=== PATIENT | female | born 1930 | race Caucasian/White ===

== ENCOUNTER 2017-10-05 14:45 | Emergency (ER) | payer OTHER ==
[~2017-10-05] VITALS: Ht 162.6 cm; Wt 106.3 kg
[~2017-10-05 14:45] MED LIST: ACET-1311 PO; ALUMSUS2 PO; ATV5 PO; CALCTAB5 PO; CITRACEL PO; CLC100 PO; CTP1 PO; DIGO0.122 PO; DLCS PR; FENT12DI3 TD; HYZ/10015 PO; MAGN400T6 PO; METO-478 PO; MULT-506 PO; POTA20TA16 PO; PRLSR20 PO; SYN25 PO; WARF1TAB PO
[2017-10-05 14:54] VITALS: TEMP 36.8; Ht 162.6 cm; Wt 106.3 kg
[2017-10-05] MEDS ORDERED: SODIUM CHLORIDE 0.9% 500ML 500 ML IV STA (15:10)
[2017-10-05] MEDS ORDERED: DiphenhydrAMINE HCL 50 MG/ML VIAL IV STA (15:10)
[2017-10-05] MEDS ORDERED: METOCLOPRAMIDE HCL INJ 5 MG/ML 2 ML VIAL IV STA (15:10)
--- NOTE | 2017-10-05 15:33 | DIAGNOSTIC IMAGING REPORT ---
CHEST ONE VIEW PORTABLE CLINICAL HISTORY: 87 years-old Female presenting with CHEST PAIN. TECHNIQUE: Portable upright AP view of the chest was obtained. COMPARISON: 07/20/2010. FINDINGS: Left subclavian pacer with leads to the right atrium and right ventricular apex. Atherosclerosis of aortic arch and mild tortuosity of the descending thoracic aorta. Cardiac silhouette enlarged, increased from prior. Prominence of pulmonary vasculature. Prominent lung markings. No focal infiltrate. No large effusion or pneumothorax. Degenerative changes of the spine and shoulders. Upper abdomen normal. IMPRESSION: 1. Cardiomegaly with findings concerning for volume overload. No jessica pulmonary edema. Electronically signed by: Jamie Villarreal M.D. 10/05/2017 3:31 PM Dictated Date/Time: 10/05/2017 3:30 PM
--- NOTE | 2017-10-05 15:39 | EMERGENCY ROOM VISIT NOTE ---
History Report prepared by Harinder: Angeli Rushing Under the Supervision of: Dr. José Antonio Amezcua M.D. First contact with patient: 15:07 Chief Complaint: HEADACHE Stated Complaint: HEADACHE/PAIN History of Present Illness The patient is an 87 year old female who presents to the Emergency Room with complaints of intermittent headaches starting last week. The patient had 3 headaches last week. These headaches resolved with Excedrin. She normally does not have headaches. 2.5 hours ago she started having another headache. The pain started at a 2-3 and increased quickly to a 5/10. The headache is on the right side of her head around her hindu and into her eye area. Excedrin did not improve her headache today. She found that her blood pressure was around 185/ 125 after the headache started so the patient went to her doctor today and was sent to the ED. The patient reports feeling dizzy. She denies any weakness, vision changes, cough, congestion, cold symptoms, urinary symptoms, neck pain, vomiting, or nausea. She has some soft stools at times and notes that she does take a stool softener. She has been eating and drinking well. She tripped and fell last week while she had a headache. She also fell today during her headache. She hit her elbow. She denies any other injury. She has a history of spinal stenosis and is on a fentanyl patch. She is on Coumadin and digoxin. She has a history of atrial fibrillation, hypertension, and kidney disease. She denies any history of heart failure. Source of History: patient Onset: last week Position: head Symptom Intensity: 5/10 Quality: ache Timing: intermittent Associated Symptoms: No cough, No neck pain, No nausea, No vomiting, No urinary symptoms, No weakness Note: Pt reports dizziness, high blood pressure. Pt denies vision changes, congestion , cold symptoms. Review of Systems See HPI for pertinent positives and negatives. A total of ten systems were reviewed and were otherwise negative. Past Medical & Surgical Medical Problems: (1) Atrial fibrillation (2) Hypertension (3) Kidney disease (4) Spinal stenosis Family History Noncontributory secondary to age. Social History Smoking Status: Former Smoker Marital Status: Occupation Status: retired Current/Historical Medications Scheduled Cholecalciferol (Vitamin D), 1,000 UNITS PO DAILY Clonidine Hcl (Catapres), 0.1 MG PO DAILY Digoxin (Digoxin), 0.125 MG PO Q2D Docusate Sodium (Docusate Sodium), 100 MG PO BID Duloxetine Hcl (Cymbalta), 30 MG PO DAILY Fentanyl (Fentanyl), 25 MCG TD Q72H Hctz/Losartan (Hyzaar 25MG/100MG), 1 TAB PO DAILY Levothyroxine Sodium (Synthroid), 50 MCG PO DAILY Magnesium Oxide (Mag-Ox), 400 MG PO DAILY Metoprolol Tartrate (Metoprolol Tartrate), 100 MG PO BID Nystatin/Triamcinolone (Mycolog ||), 1 APPLN TD BID Psyllium (Metamucil Original Textur), 1.5 TBS PO QAM Ropinirole (Requip), 0.5 MG PO HS Warfarin Sodium (Warfarin Sodium), 4 MG PO 2XWK Warfarin Sodium (Coumadin), 3 MG PO 5XWK Scheduled PRN Acetaminophen W/ Codeine (Tylenol/Codeine #4), 1 TAB PO Q6H PRN for Pain Albuterol Sulfate (Proair Respiclick), 2 PUFFS INH QID PRN for SOB/Wheezing Artificial Tear Solution (Tears Naturale), Unknown Dose OPB DIRECTED PRN for DRYNESS Lorazepam (Ativan), 0.5 MG PO TID PRN for Anxiety/Agitation Naloxone HCl (Narcan), 1 SPRAY NA DIRECTED PRN for SUSPECTED OPOID OVERDOSE Ondansetron Hcl (Zofran), 8 MG PO TID PRN for Nausea Polyethylene Glycol 3350 (Miralax), 17 GM PO DAILY PRN for Constipation Allergies Coded Allergies: Pravastatin (Verified Allergy, Intermediate, "MUSCLE PAIN", 10/05/17) Clonidine (Verified Allergy, Mild, TOPICAL RASH TO PATCH ONLY, 10/05/17) PT REPORTS A REACTION TO THE PATCH ONLY. PT TAKES THE PILL WITHOUT DIFFICULTY Physical Exam Vital Signs Date Time Temp Pulse Resp B/P (MAP) Pulse Ox O2 Delivery O2 Flow Rate FiO2 10/05/17 21:40 89 18 151/89 95 10/05/17 21:15 100 10/05/17 20:20 95 Room Air 10/05/17 19:27 90 10/05/17 19:19 106 22 164/92 96 Room Air 10/05/17 17:56 165/80 NIBP 10/05/17 17:48 108 16 175/155 98 Room Air 10/05/17 16:51 110 16 187/163 93 Room Air 10/05/17 16:22 116 24 193/151 96 Room Air 10/05/17 16:21 96 Room Air 10/05/17 15:08 82 10/05/17 14:54 36.8 91 16 188/135 98 Room Air Physical Exam GENERAL: Awake, alert, relatively well-appearing, in no distress HENT: Normocephalic, atraumatic. No temporal tenderness to palpation. Dry mucous membranes. EYES: Normal conjunctiva. Sclera non-icteric. NECK: Supple. No nuchal rigidity. FROM. No JVD. RESPIRATORY: Clear to auscultation. CARDIAC: Irregularly irregular rhythm. Extremities warm and well perfused. Pulses equal. ABDOMEN: Soft, non-distended. No tenderness to palpation. No rebound or guarding. No masses. RECTAL: Deferred. MUSCULOSKELETAL: Chest examination reveals no tenderness. The back is symmetrical on inspection without obvious abnormality. There is no CVA tenderness to palpation. No joint edema. LOWER EXTREMITIES: Calves are equal size bilaterally and non-tender. No edema. No discoloration. NEURO: Normal sensorium. No sensory or motor deficits noted. SKIN: No rash or jaundice noted. Medical Decision & Procedures ER Provider Diagnostic Interpretation: Radiology results as stated below per my review and radiologist interpretation: CHEST ONE VIEW PORTABLE CLINICAL HISTORY: 87 years-old Female presenting with CHEST PAIN. TECHNIQUE: Portable upright AP view of the chest was obtained. COMPARISON: 07/20/2010. FINDINGS: Left subclavian pacer with leads to the right atrium and right ventricular apex. Atherosclerosis of aortic arch and mild tortuosity of the descending thoracic aorta. Cardiac silhouette enlarged, increased from prior. Prominence of pulmonary vasculature. Prominent lung markings. No focal infiltrate. No large effusion or pneumothorax. Degenerative changes of the spine and shoulders. Upper abdomen normal. IMPRESSION: 1. Cardiomegaly with findings concerning for volume overload. No jessica pulmonary edema. Electronically signed by: Jamie Villarreal M.D. 10/05/2017 3:31 PM Dictated Date/Time: 10/05/2017 3:30 PM HEAD WITHOUT CONTRAST (CT) CLINICAL HISTORY: 87 years-old Female presenting with Headache, on coumadin. TECHNIQUE: Multidetector CT imaging of the head was performed without the use of intravenous contrast. IV contrast: None. A dose lowering technique was used consistent with the principles of ALARA (as low as reasonably achievable). COMPARISON: None. CT DOSE (mGy.cm): The estimated cumulative dose is 601.98 mGy.cm. FINDINGS: Software Q[employer] System Specialist topogram: Unremarkable. Proportional ventricular and sulcal prominence, likely age-related parenchymal volume loss. Periventricular and subcortical white matter hypoattenuation, nonspecific but likely indicative of chronic small vessel ischemic change. No mass effect or midline shift. No hemorrhage or acute territorial infarct. No extra-axial fluid collection. Extensive opacification with a crenulated margin and hyperdensity in the left maxillary sinus. [place] lenses are absent. IMPRESSION: 1. Chronic small vessel ischemic change. No acute intracranial abnormality. 2. Findings could suggest chronic allergic sinusitis in the left maxillary sinus. Electronically signed by: Jamie Villarreal M.D. 10/05/2017 4:57 PM Dictated Date/Time: 10/05/2017 4:54 PM Laboratory Results 10/05/17 04:52 Red Blood Count 3.53, Mean Corpuscular Volume 96.3, Mean Corpuscular Hemoglobin 31.7, Mean Corpuscular Hemoglobin Concent 32.9, Mean Platelet Volume 10.3, Neutrophils (%) (Auto) 85.8, Lymphocytes (%) (Auto) 7.8, Monocytes (%) (Auto) 5.2, Eosinophils (%) (Auto) 0.7, Basophils (%) (Auto) 0.1, Neutrophils # (Auto) 9.16, Lymphocytes # (Auto) 0.83, Monocytes # (Auto) 0.56, Eosinophils # (Auto) 0.08, Basophils # (Auto) 0.01 10/05/17 16:13 Test 10/05/17 04:52 10/05/17 16:13 10/05/17 16:20 10/05/17 17:12 White Blood Count 10.68 K/uL (4.8-10.8) Red Blood Count 3.53 M/uL (4.2-5.4) Hemoglobin 11.2 g/dL (12.0-16.0) Hematocrit 34.0 % (37-47) Mean Corpuscular Volume 96.3 fL (80-100) Mean Corpuscular Hemoglobin 31.7 pg (25-34) Mean Corpuscular Hemoglobin Concent 32.9 g/dl (32-36) Platelet Count 269 K/uL (130-400) Mean Platelet Volume 10.3 fL (7.4-10.4) Neutrophils (%) (Auto) 85.8 % Lymphocytes (%) (Auto) 7.8 % Monocytes (%) (Auto) 5.2 % Eosinophils (%) (Auto) 0.7 % Basophils (%) (Auto) 0.1 % Neutrophils # (Auto) 9.16 K/uL (1.4-6.5) Lymphocytes # (Auto) 0.83 K/uL (1.2-3.4) Monocytes # (Auto) 0.56 K/uL (0.11-0.59) Eosinophils # (Auto) 0.08 K/uL (0-0.5) Basophils # (Auto) 0.01 K/uL (0-0.2) RDW Standard Deviation 52.0 fL (36.4-46.3) RDW Coefficient of Variation 14.9 % (11.5-14.5) Immature Granulocyte % (Auto) 0.4 % Immature Granulocyte # (Auto) 0.04 K/uL (0.00-0.02) Anion Gap 9.0 mmol/L (3-11) Est Creatinine Clear Calc Drug Dose 42.1 ml/min Estimated GFR () 51.2 Estimated GFR (Non- 44.1 BUN/Creatinine Ratio 20.8 (10-20) Calcium Level 8.8 mg/dl (8.5-10.1) Total Bilirubin 0.5 mg/dl (0.2-1) Direct Bilirubin mg/dl (0-0.2) Aspartate Amino Transf (AST/SGOT) 69 U/L (15-37) Alanine Aminotransferase (ALT/SGPT) 59 U/L (12-78) Alkaline Phosphatase 67 U/L (45-117) Troponin I 0.018 ng/ml (0-0.045) Total Protein 7.6 gm/dl (6.4-8.2) Albumin 3.7 gm/dl (3.4-5.0) Lipase 59 U/L (73-393) Chemistry Specimen Hemolysis Digoxin Level 0.3 ng/ml (0.8-2.0) Pro-B-Type Natriuretic Peptide 23621 pg/ml (0-1800) Prothrombin Time 21.1 SECONDS (9.0-12.0) Prothromb Time International Ratio 2.0 (0.9-1.1) Activated Partial Thromboplast Time 30.5 SECONDS (21.0-31.0) Partial Thromboplastin Ratio 1.2 Test 10/05/17 18:34 Urine Color YELLOW Urine Appearance CLOUDY (CLEAR) Urine pH 6.5 (4.5-7.5) Urine Specific [place] 1.018 (1.000-1.030) Urine Protein 2+ (NEG) Urine Glucose (UA) NEG (NEG) Urine Ketones NEG (NEG) Urine Occult Blood NEG (NEG) Urine Nitrite NEG (NEG) Urine Bilirubin NEG (NEG) Urine Urobilinogen NEG (NEG) Urine Leukocyte Esterase TRACE (NEG) Urine WBC (Auto) 1-5 /hpf (0-5) Urine RBC (Auto) 0-4 /hpf (0-4) Urine Hyaline Casts (Auto) 1-5 /lpf (0-5) Urine Epithelial Cells (Auto) >30 /lpf (0-5) Urine Bacteria (Auto) 4+ (NEG) Laboratory results reviewed by me Medications Administered Medications (Trade) Dose Ordered Sig/Lindsey Route Start Time Stop Time Status Last Admin Dose Admin Sodium Chloride 500 ml @ 999 mls/hr Q31M STAT IV 10/05/17 15:10 10/05/17 15:40 DC 10/05/17 16:18 999 MLS/HR Metoclopramide HCl (Reglan Inj) 10 mg NOW STAT IV 10/05/17 15:10 10/05/17 15:19 DC 10/05/17 16:18 10 MG Diphenhydramine HCl (Benadryl Inj) 25 mg NOW STAT IV 10/05/17 15:10 10/05/17 15:19 DC 10/05/17 16:18 25 MG Lorazepam (Ativan Inj) 0.5 mg NOW STAT IV 10/05/17 16:27 10/05/17 16:29 DC 10/05/17 16:51 0.5 MG Fentanyl (Duragesic Patch) 25 mcg NOW STAT TD 10/05/17 16:44 10/05/17 16:45 DC 10/05/17 16:58 25 MCG Metoprolol Tartrate (Lopressor Tab) 100 mg NOW STAT PO 10/05/17 18:10 10/05/17 18:14 DC 10/05/17 18:30 100 MG Acetaminophen/ Codeine Phosphate (Tylenol w/ Codeine #4 Tab) 1 tab NOW STAT PO 10/05/17 19:16 10/05/17 19:18 DC 10/05/17 19:29 1 TAB Dexamethasone Sodium Phosphate (Dexamethasone Inj Pf) 10 mg NOW ONCE IV 10/05/17 19:30 10/05/17 19:31 DC 10/05/17 19:29 10 MG ECG Indication: other Rate (beats per minute): 104 Rhythm: atrial fibrillation Findings: no acute ischemic change, other (normal axis) Comparison ECG Date: 21-Jul-2011 Change: no significant change ED Course 1508: The patient was evaluated in room B5. A complete history and physical exam was performed. 1802: I reevaluated the patient. 2018: I reevaluated the patient. 2040: I discussed the patient's case with Dr. Morgan, [facility] cardiology. He is in agreement with the plan. 2114: I reevaluated the patient. Discussed results and discharge instructions: She verbalized understanding and agreement. The patient is ready for discharge. Medical Decision I reviewed the patient's past medical history, medications, and the nursing notes as described above. Differential diagnosis: ICH, tension, headache, dehydration, electrolyte abnormality, pneumonia, UTI. The patient is an 87-year-old woman with a past medical history of A. fib on Coumadin as well as hypertension on digoxin presents to the Emergency Department with intermittent headaches for the past week in the setting of elevated blood pressures sent from her PCPs office per hpi. On arrival the patient is well-appearing, no acute distress, systolic blood pressure to 180s but otherwise stable. Neurologically intact including normal cerebellar function with [id number], alternating palms, [id number]. CT head negative for acute findings. She and feeling somewhat improved after 500 mL IV fluid bolus, Reglan and Benadryl. However given persistent mild headache treated with dexamethasone and her home Tylenol 4 with further improvement and resolution of CAICEDO. Patient counseled on need for close INR observation given dose of steroid in the setting of her Coumadin. Labs are unremarkable however chest showing volume overload with venous congestion and so BNP was ordered to further characterize and was in the 10,000' s. Patient's oxygenation has been normal while in ED with sats >93%. Additionally assessed with a ambulatory pulse ox and was > 95% on RA. Of note the patient has not been using her home CPAP for the past 2 weeks since her machine broke and when the new one was delivered she did not know how to use it. Thus, patient's elevated BNP is possibly related to this in the setting of her A. fib and likely underlying pulmonary hypertension. Bedside echo demonstrated mildly dilated RV with grossly normal function. Given the lack of respiratory symptoms and saturating normally no indication for admission at this time. Case was discussed with Dilai Young manager behavior on-call , who agreed that given the patient's lack of respiratory symptoms no need for admission at this time and outpatient follow-up is appropriate. Case management assisting to help arrange outpatient allergy follow-up for formal echo. Family was also able to contact the [employer] and a tech will be meeting them at home to help ensure the patient is able to use her CPAP going forward. Findings and plan for follow-up reviewed with patient. Patient agreeable and d/c'd per discharge instructions. Medication Reconcilliation Current Medication List: was personally reviewed by me Blood Pressure Screening Patient's blood pressure: Elevated blood pressure Blood pressure disposition: Referred to PCP Consults Time Called: 2037 Consulting Physician: Dilia Young cardiology Returned Call: 2040 I discussed the patient's case with him. He is in agreement with the plan. Impression Primary Impression: Headache Additional Impressions: Hypertension Congestive heart failure of unknown etiology Scribe Attestation The scribe's documentation has been prepared under my direction and personally reviewed by me in its entirety. I confirm that the note above accurately reflects all work, treatment, procedures, and medical decision making performed by me. Departure Information Dispostion Home / Self-Care Referrals Willi Mccoy, VaughnO. (PCP) Patient Instructions Congestive Heart Failure -[facility], Headache Pain, Hypertension Dc, My [facility] Additional Instructions Please follow up with your primary care physician as well as with your manager behavior, Dr. Fenton, for re-evaluation within the next week. You were given a dose of a steroid, which can affect your Coumadin levels so this should be check with your doctor. Your headache is most likely due to not using your home CPAP for the past 2 weeks. Your chest xray showed some vascular congestion and your BNP was elevated to 10 thousand, which should be promptly be evaluated by your manager behavior with a formal ultrasound of your heart. Otherwise, your exam, EKG, chest xray, CT scan of your head, and lab results did not show signs of an emergent condition at this time. Return to the emergency department for worsening symptoms as described in the accompanying instructions. Problem Qualifiers
[2017-10-05] MEDS ORDERED: WARF4TAB43 PO (16:18)
[2017-10-05] MEDS ORDERED: DRGTP25 TD (16:18)
[2017-10-05] MEDS ORDERED: ONDA8TAB6 PO (16:18)
[2017-10-05] MEDS ORDERED: WARF2TAB PO (16:18)
[2017-10-05] MEDS ORDERED: ARTISOL OPB (16:18)
[2017-10-05] MEDS ORDERED: LORA-741 PO (16:18)
[2017-10-05] MEDS ORDERED: TYLENOL #4 PO (16:18)
[2017-10-05] MEDS ORDERED: NALO1SPR (16:18)
[2017-10-05] MEDS ORDERED: CTP/1 PO (16:18)
[2017-10-05] MEDS ORDERED: ALBU18002 INH (16:18)
[2017-10-05] MEDS ORDERED: CYM/30 PO (16:18)
[2017-10-05] MEDS ORDERED: LNX125 PO (16:18)
[2017-10-05] MEDS ORDERED: LEVO50TA PO (16:18)
[2017-10-05] MEDS ORDERED: LPR100 PO (16:18)
[2017-10-05] MEDS ORDERED: ROPI0.5T15 PO (16:18)
[2017-10-05] MEDS ORDERED: DOCU100C31 PO (16:18)
[2017-10-05] MEDS ORDERED: PSYL48.58 PO (16:18)
[2017-10-05] MEDS ORDERED: POLY335019 PO (16:18)
[2017-10-05] MEDS ORDERED: NYSTCRE11 TD (16:18)
[2017-10-05] MEDS ORDERED: CHOL100010 PO (16:18)
[2017-10-05 16:21] VITALS: O2SAT 96
[2017-10-05] MEDS ORDERED: ACET-1079 PO (16:23)
[2017-10-05 16:24] LABS: BASO % 0.1 %; BASO ABS # 0.01 K/uL (0-0.2); COMPLETE YES; EOS % 0.7 %; IG% 0.4 %; LYMPH % 7.8 %; LYMPH ABS # 0.83 K/uL (1.2-3.4); MEAN CELL VOLUME 96.3 fL (80-100); MEAN CORPUSCULAR HEMOGLOBIN 31.7 pg (25-34); MEAN CORPUSCULAR HGB CONC 32.9 g/dl (32-36); MEAN PLATELET VOLUME 10.3 fL (7.4-10.4); MONO % 5.2 %; NEUT % 85.8 %; PLATELET COUNT 269 K/uL (130-400); RED BLOOD COUNT 3.53 M/uL (4.2-5.4); WHITE BLOOD COUNT 10.68 K/uL (4.8-10.8)
[2017-10-05] MEDS ORDERED: LORAZEPAM 2 MG/ML 1 ML VIAL IV STA (16:27)
[2017-10-05] MEDS ORDERED: FENTANYL 50 MCG/HR TDSY TD STA (16:30)
[2017-10-05] MEDS ORDERED: FENTANYL 25 MCG/HR TDSY TD STA (16:44)
[2017-10-05 16:55] LABS: BUN/CREATININE RATIO 20.8 (10-20); CALCIUM 8.8 mg/dl (8.5-10.1); CREATININE 1.12 mg/dl (0.60-1.20); POTASSIUM 4.2 mmol/L (3.5-5.1)
--- NOTE | 2017-10-05 16:59 | DIAGNOSTIC IMAGING REPORT ---
HEAD WITHOUT CONTRAST (CT) CLINICAL HISTORY: 87 years-old Female presenting with Headache, on coumadin. TECHNIQUE: Multidetector CT imaging of the head was performed without the use of intravenous contrast. IV contrast: None. A dose lowering technique was used consistent with the principles of ALARA (as low as reasonably achievable). COMPARISON: None. CT DOSE (mGy.cm): The estimated cumulative dose is 601.98 mGy.cm. FINDINGS: [place] topogram: Unremarkable. Proportional ventricular and sulcal prominence, likely age-related parenchymal volume loss. Periventricular and subcortical white matter hypoattenuation, nonspecific but likely indicative of chronic small vessel ischemic change. No mass effect or midline shift. No hemorrhage or acute territorial infarct. No extra-axial fluid collection. Extensive opacification with a crenulated margin and hyperdensity in the left maxillary sinus. [place] lenses are absent. IMPRESSION: 1. Chronic small vessel ischemic change. No acute intracranial abnormality. 2. Findings could suggest chronic allergic sinusitis in the left maxillary sinus. Electronically signed by: Jamie Villarreal M.D. 10/05/2017 4:57 PM Dictated Date/Time: 10/05/2017 4:54 PM
[2017-10-05 17:30] LABS: PARTIAL THROMBOPLASTIN RATIO 1.2; PROTHROMBIN TIME (PATIENT) 21.1 SECONDS (9.0-12.0)
[2017-10-05] MEDS ORDERED: METOPROLOL TARTRATE 50 MG TAB PO STA (18:10)
[2017-10-05 18:55] LABS: URINE APPEARANCE CLOUDY (CLEAR); URINE BILIRUBIN NEG (NEG); URINE COLOR YELLOW; URINE EPITHELIAL CELL AUTO >30 /lpf (0-5); URINE NITRITE NEG (NEG); URINE PH 6.5 (4.5-7.5); URINE SPECIFIC GRAVITY 1.018 (1.000-1.030); UROBILINOGEN NEG (NEG); ZZUR CULT IF INDIC CLEAN CATCH YES
[2017-10-05 19:01] LABS: MANUAL MICROSCOPIC REQUIRED? NO; REVIEW REQ? NO
[2017-10-05] MEDS ORDERED: ACETAMINOPHEN PO STA (19:16)
[2017-10-05] MEDS ORDERED: CODEINE PO STA (19:16)
[2017-10-05] MEDS ORDERED: DEXAMETHASONE **PF** INJ 10 MG/ML VIAL IV ONE (19:30)
[2017-10-05 21:40] VITALS: BP 151/89; PULSE 89; O2SAT 95
[2017-10-08] MEDS ORDERED: NRV5 PO (09:48)
[2017-10-08] MEDS ORDERED: ASPI81TA28 PO (09:48)
== END 2017-10-05 21:40 | disposition home or self-care (01) ==
LOC: EDBD 14:45 → C.EDB 14:46
DX: R51 Headache (principal); I10 Essential (primary) hypertension; I50.9 Heart failure, unspecified; I48.91 Unspecified atrial fibrillation; Z87.891 Personal history of nicotine dependence; Z79.01 Long term (current) use of anticoagulants; Z51.81 Encounter for therapeutic drug level monitoring

== ENCOUNTER 2017-10-06 15:27 | Inpatient (IN) | payer OTHER ==
[~2017-10-06] VITALS: Ht 167.6 cm; Wt 98.4 kg
[~2017-10-06 15:27] MED LIST changes: +ACET-1079 PO; -ACET-1311 PO; +ALBU18002 INH; -ALUMSUS2 PO; +ARTISOL OPB; -ATV5 PO; -CALCTAB5 PO; +CHOL100010 PO; -CITRACEL PO; -CLC100 PO; +CTP/1 PO; -CTP1 PO; +CYM/30 PO; -DIGO0.122 PO; -DLCS PR; +DOCU100C31 PO; +DRGTP25 TD; -FENT12DI3 TD; +LEVO50TA PO; +LNX125 PO; +LORA-741 PO; +LPR100 PO; -METO-478 PO; -MULT-506 PO; +NALO1SPR; +NYSTCRE11 TD; +ONDA8TAB6 PO; +POLY335019 PO; -POTA20TA16 PO; -PRLSR20 PO; +PSYL48.58 PO; +ROPI0.5T15 PO; -SYN25 PO; -WARF1TAB PO; +WARF2TAB PO; +WARF4TAB43 PO
--- NOTE | 2017-10-06 15:40 | DIAGNOSTIC IMAGING REPORT ---
HEAD CT NONCONTRAST CT DOSE: 1359.50 mGycm HISTORY: Stroke symptoms. TECHNIQUE: Multiaxial CT images of the head were performed without the use of intravenous contrast. Automated exposure control was utilized for this study. A dose lowering technique was utilized adhering to the principles of ALARA. Comparison: Head CT 10/05/2017. Findings: Partial opacification of the left maxillary sinus with central hyperdense foci suggestive of inspissated secretions. This remains unchanged. The calvarium and skull base are intact. There is no mass, hematoma, midline shift, acute infarct. White matter hypodensity is nonspecific but suggestive of microvascular ischemic change. The ventricles and sulci demonstrate mild age-related involutional changes. Impression: No significant change compared to the prior study. No acute intracranial abnormality. Electronically signed by: Lorne Arellano M.D. 10/06/2017 3:38 PM Dictated Date/Time: 10/06/2017 3:35 PM
[2017-10-06 16:01] LABS: BASO % 0.2 %; BASO ABS # 0.02 K/uL (0-0.2); EOS % 0.3 %; EOS ABS # 0.03 K/uL (0-0.5); HEMATOCRIT 33.1 % (37-47); HEMOGLOBIN 10.8 g/dL (12.0-16.0); IG# 0.03 K/uL (0.00-0.02); LYMPH % 12.1 %; LYMPH ABS # 1.25 K/uL (1.2-3.4); MEAN CELL VOLUME 97.4 fL (80-100); MEAN CORPUSCULAR HEMOGLOBIN 31.8 pg (25-34); MEAN CORPUSCULAR HGB CONC 32.6 g/dl (32-36); MEAN PLATELET VOLUME 10.2 fL (7.4-10.4); MONO % 7.7 %; NEUT % 79.4 %; PLATELET COUNT 281 K/uL (130-400); RED CELL DISTRIBUTION WIDTH CV 15.3 % (11.5-14.5); RED CELL DISTRIBUTION WIDTH SD 53.7 fL (36.4-46.3); WHITE BLOOD COUNT 10.33 K/uL (4.8-10.8)
[2017-10-06 16:10] LABS: INR 1.8 (0.9-1.1); PTT PATIENT 27.7 SECONDS (21.0-31.0)
--- NOTE | 2017-10-06 16:10 | DIAGNOSTIC IMAGING REPORT ---
CHEST ONE VIEW PORTABLE CLINICAL HISTORY: Stroke COMPARISON STUDY: 10/05/2017 FINDINGS: The heart is enlarged. There is a left subclavian dual-chamber central venous pacemaker present. There is resolving mild pulmonary vascular congestion. There is no focal pulmonary consolidation. There are no pleural effusions.[ IMPRESSION: Cardiomegaly with resolving pulmonary vascular congestion. No evidence of focal pulmonary consolidation Electronically signed by: Saul Washington M.D. 10/06/2017 4:09 PM Dictated Date/Time: 10/06/2017 4:08 PM
--- NOTE | 2017-10-06 16:15 | EMERGENCY ROOM VISIT NOTE ---
History Report prepared by Harinder: Edy Donaldson Under the Supervision of: Dr. William Torres M.D. First contact with patient: 15:26 Stated Complaint: STROKE SX History of Present Illness The patient is a 87 year old female who presents to the Emergency Room by EMS with complaints of resolved neurologic symptoms beginning 1.5 hours ago. The patient's symptoms include right arm numbness, and slurred speech. She feels that her right leg may have been slightly weak as well. Her symptoms resolved en route and were present for about an hour total. The patient denies headaches. She is on Coumadin for A-fib. The patient was seen in the ED yesterday for high blood pressure and a headache, and received a head CT which showed possible sinusitis. She was ultimately discharged home. Her initial blood pressure was 188/135, but lowered to 151/89 at the time of discharge. The patient states that she felt normal following discharge. Source of History: patient Onset: 1.5 hours ago Symptom Intensity: 1 hour long Quality: other (neurologic symptoms) Timing: resolved Associated Symptoms: + numbness (right arm), No headache Note: Additional symptoms: resolved speech slur. Review of Systems See HPI for pertinent positives & negatives. A total of 10 systems reviewed and were otherwise negative. Past Medical & Surgical Medical Problems: (1) Atrial fibrillation (2) HTN (hypertension) (3) Hypertension (4) Kidney disease (5) Spinal stenosis (6) TIA (transient ischemic attack) Family History No pertinent family history stated. Social History Smoking Status: Former Smoker Marital Status: Occupation Status: retired Current/Historical Medications Scheduled Cholecalciferol (Vitamin D), 1,000 UNITS PO DAILY Clonidine Hcl (Catapres), 0.1 MG PO DAILY Digoxin (Digoxin), 0.125 MG PO Q2D Docusate Sodium (Docusate Sodium), 100 MG PO BID Duloxetine Hcl (Cymbalta), 30 MG PO DAILY Fentanyl (Fentanyl), 25 MCG TD Q72H Hctz/Losartan (Hyzaar 25MG/100MG), 1 TAB PO DAILY Levothyroxine Sodium (Synthroid), 50 MCG PO DAILY Magnesium Oxide (Mag-Ox), 400 MG PO DAILY Metoprolol Tartrate (Metoprolol Tartrate), 100 MG PO BID Nystatin/Triamcinolone (Mycolog ||), 1 APPLN TD BID Psyllium (Metamucil Original Textur), 1.5 TBS PO QAM Ropinirole (Requip), 0.5 MG PO HS Warfarin Sodium (Warfarin Sodium), 4 MG PO 2XWK Warfarin Sodium (Coumadin), 3 MG PO 5XWK Scheduled PRN Acetaminophen W/ Codeine (Tylenol/Codeine #4), 1 TAB PO Q6H PRN for Pain Albuterol Sulfate (Proair Respiclick), 2 PUFFS INH QID PRN for SOB/Wheezing Artificial Tear Solution (Tears Naturale), Unknown Dose OPB DIRECTED PRN for DRYNESS Lorazepam (Ativan), 0.5 MG PO TID PRN for Anxiety/Agitation Naloxone HCl (Narcan), 1 SPRAY NA DIRECTED PRN for SUSPECTED OPOID OVERDOSE Ondansetron Hcl (Zofran), 8 MG PO TID PRN for Nausea Polyethylene Glycol 3350 (Miralax), 17 GM PO DAILY PRN for Constipation Allergies Coded Allergies: Clonidine (Verified Allergy, Mild, TOPICAL RASH TO PATCH ONLY, 10/06/17) PT REPORTS A REACTION TO THE PATCH ONLY. PT TAKES THE PILL WITHOUT DIFFICULTY Pravastatin (Verified Adverse Reaction, Intermediate, "MUSCLE PAIN", 10/06) Physical Exam Vital Signs Date Time Temp Pulse Resp B/P (MAP) Pulse Ox O2 Delivery O2 Flow Rate FiO2 10/06/17 16:51 81 22 162/139 98 Room Air 10/06/17 16:27 66 24 97 10/06/17 16:06 71 10/06/17 16:02 154/104 10/06/17 15:58 64 20 152/112 93 Nasal Cannula 2.0 10/06/17 15:57 66 25 100 10/06/17 15:53 93 Room Air 10/06/17 15:51 152/112 10/06/17 15:45 189/84 10/06/17 15:38 36.6 72 20 189/84 94 Room Air Physical Exam GENERAL: Patient is in no acute distress. HEENT: No acute trauma, normocephalic atraumatic, mucous membranes moist, no nasal congestion, no scleral icterus. NECK: No stridor, no adenopathy, no meningismus, trachea is midline. LUNGS: Clear to auscultation bilaterally, no wheeze, no rhonchi, breath sounds equal. HEART: Irregular with a normal rate. No murmurs. ABDOMEN: Soft, nontender, bowel sounds positive, no hernias, no peritonitis. EXTREMITIES: No cyanosis or edema, full range of motion of all the joints without pain or difficulty, no signs for acute trauma. NEUROLOGIC: Oriented x 3, no acute motor or sensory deficits, no focal weakness. No speech slur or facial droop. No pronator drift or cerebellar dysfunction. SKIN: No rash, no jaundice, no diaphoresis. Medical Decision & Procedures ER Provider Diagnostic Interpretation: Radiology results as stated below per my review and radiologist interpretation: HEAD CT NONCONTRAST Findings: Partial opacification of the left maxillary sinus with central hyperdense foci suggestive of inspissated secretions. This remains unchanged. The calvarium and skull base are intact. There is no mass, hematoma, midline shift, acute infarct. White matter hypodensity is nonspecific but suggestive of microvascular ischemic change. The ventricles and sulci demonstrate mild age-related involutional changes. Impression: No significant change compared to the prior study. No acute intracranial abnormality. Electronically signed by: Lorne Arellano M.D. 10/06/2017 3:38 PM CHEST ONE VIEW PORTABLE FINDINGS: The heart is enlarged. There is a left subclavian dual-chamber central venous pacemaker present. There is resolving mild pulmonary vascular congestion. There is no focal pulmonary consolidation. There are no pleural effusions.[ IMPRESSION: Cardiomegaly with resolving pulmonary vascular congestion. No evidence of focal pulmonary consolidation Electronically signed by: Saul Washington M.D. 10/06/2017 4:09 PM Laboratory Results 10/06/17 15:40 Red Blood Count 3.40, Mean Corpuscular Volume 97.4, Mean Corpuscular Hemoglobin 31.8, Mean Corpuscular Hemoglobin Concent 32.6, Mean Platelet Volume 10.2, Neutrophils (%) (Auto) 79.4, Lymphocytes (%) (Auto) 12.1, Monocytes (%) (Auto) 7.7, Eosinophils (%) (Auto) 0.3, Basophils (%) (Auto) 0.2, Neutrophils # (Auto) 8.20, Lymphocytes # (Auto) 1.25, Monocytes # (Auto) 0.80, Eosinophils # (Auto) 0.03, Basophils # (Auto) 0.02 10/06/17 15:40 Test 10/06/17 15:26 10/06/17 15:40 10/06/17 15:49 White Blood Count 10.33 K/uL (4.8-10.8) Red Blood Count 3.40 M/uL (4.2-5.4) Hemoglobin 10.8 g/dL (12.0-16.0) Hematocrit 33.1 % (37-47) Mean Corpuscular Volume 97.4 fL (80-100) Mean Corpuscular Hemoglobin 31.8 pg (25-34) Mean Corpuscular Hemoglobin Concent 32.6 g/dl (32-36) Platelet Count 281 K/uL (130-400) Mean Platelet Volume 10.2 fL (7.4-10.4) Neutrophils (%) (Auto) 79.4 % Lymphocytes (%) (Auto) 12.1 % Monocytes (%) (Auto) 7.7 % Eosinophils (%) (Auto) 0.3 % Basophils (%) (Auto) 0.2 % Neutrophils # (Auto) 8.20 K/uL (1.4-6.5) Lymphocytes # (Auto) 1.25 K/uL (1.2-3.4) Monocytes # (Auto) 0.80 K/uL (0.11-0.59) Eosinophils # (Auto) 0.03 K/uL (0-0.5) Basophils # (Auto) 0.02 K/uL (0-0.2) RDW Standard Deviation 53.7 fL (36.4-46.3) RDW Coefficient of Variation 15.3 % (11.5-14.5) Immature Granulocyte % (Auto) 0.3 % Immature Granulocyte # (Auto) 0.03 K/uL (0.00-0.02) Prothrombin Time 18.2 SECONDS (9.0-12.0) Prothromb Time International Ratio 1.8 (0.9-1.1) Activated Partial Thromboplast Time 27.7 SECONDS (21.0-31.0) Partial Thromboplastin Ratio 1.1 Anion Gap 5.0 mmol/L (3-11) Est Creatinine Clear Calc Drug Dose 35.7 ml/min Estimated GFR () 40.8 Estimated GFR (Non- 35.2 BUN/Creatinine Ratio 21.2 (10-20) Calcium Level 8.9 mg/dl (8.5-10.1) Magnesium Level 1.7 mg/dl (1.8-2.4) Total Creatine Kinase 301 U/L (26-192) Creatine Kinase MB 6.1 ng/ml (0.5-3.6) Creatine Kinase MB Ratio 2.0 (0-3.0) Troponin I 0.023 ng/ml (0-0.045) Digoxin Level 0.7 ng/ml (0.8-2.0) Bedside Prothrombin Time INR 2.0 (0.9-1.1) Laboratory results reviewed by me. Medications Administered Medications (Trade) Dose Ordered Sig/Lindsey Route Start Time Stop Time Status Last Admin Dose Admin HCTZ/Losartan Potassium (Hyzaar 50-12.5 Tab) 2 tab QAM PO 10/07/17 09:00 11/06/17 08:59 10/06/17 16:54 2 TAB Magnesium Sulfate (Magnesium Sulfate) 1 gm NOW STAT IV 10/06/17 16:37 10/06/17 16:38 DC 10/06/17 16:57 1 GM Aspirin (Aspirin Chew) 324 mg NOW STAT PO 10/06/17 16:38 10/06/17 16:39 DC 10/06/17 16:57 324 MG ECG Indication: weakness Rate (beats per minute): 75 Rhythm: other (Ventricular paced) Findings: other (No obvious ischemia. Occasional muscogee beats noted. ) ED Course 1525: The patient was taken directly to CT. 1537: The patient was evaluated in room A1. A complete history and physical exam was performed. 1635: The patient was moved to room C7. 1637: Ordered Magnesium Sulfate 1 gm IV, Aspirin Chew 324 mg PO. Ordered 100 mg- 25mg Hyzaar PO now, 1 time dose. 1644: Upon reexamination the patient is resting comfortably. I discussed results and treatment plan with the patient. She verbalizes agreement and understanding. I spoke with Karin AN of [facility]. We discussed the patient's results and findings. The patient will be evaluated by [facility] for further management. Medical Decision The patient is a 87 year old female who presents to the ED with complaints of resolved neurologic symptoms. Differential diagnoses considered include stroke , TIA, ICH, infection, electrolyte imbalance, anemia, and dysrhythmia. There is no leukocytosis. The patient is anemic but this appears baseline looking back at previous testing. No significant electrolyte abnormality except for a slightly low magnesium at 1.7. No kidney failure. INR is elevated consistent with her Coumadin use. EKG shows a functioning ventricular pacemaker, no dysrhythmia. Brain CT shows no acute bleed or mass effect. Chest film does not show pneumonia or CHF. On exam, I could not find evidence for any focal neurologic deficits. Digoxin level was not toxic. The patient presents with strokelike symptoms. By the time she arrived here, she was basically asymptomatic. She clearly is not a candidate for TPA--her symptoms resolved and she uses Coumadin. The patient was given some oral aspirin. She took her normal oral blood pressure medication-she was due for this medication. She was written to receive 1 g of IV magnesium to replace the slightly low value. The patient requires a hospital stay. She likely had a TIA or a small stroke. I do not think she is stable for discharge, I spoke with the patient and the case work aide. The on-call hospitalist was consulted. Medication Reconcilliation Current Medication List: was personally reviewed by me Blood Pressure Screening Patient's blood pressure: Elevated blood pressure Blood pressure disposition: Referred to PCP Consults Time Called: 164 Consulting Physician: Karin Ryan Returned Call: [phone] Discussed the patient's case. The patient will be evaluated for further management. Impression Primary Impression: Stroke-like symptoms Additional Impressions: Right sided weakness Hypomagnesemia Scribe Attestation The scribe's documentation has been prepared under my direction and personally reviewed by me in its entirety. I confirm that the note above accurately reflects all work, treatment, procedures, and medical decision making performed by me. Departure Information Dispostion Being Evaluated By Hospitalist Referrals Willi Mccoy D.O. (PCP) Stroke History Time Last Known Well 1.5 hours ago Stroke t-PA Criteria Reviewed Does NOT meet criteria for t-PA Reason t-PA Not Given Treatment not indicated Problem Qualifiers
[2017-10-06 16:20] LABS: CALCIUM 8.9 mg/dl (8.5-10.1); CREATININE 1.35 mg/dl (0.60-1.20); POTASSIUM 3.8 mmol/L (3.5-5.1)
[2017-10-06 16:26] LABS: CKMB 6.1 ng/ml (0.5-3.6)
[2017-10-06] MEDS ORDERED: MAGNESIUM SULFATE 1GM / D5W 1 GM BAG IV STA (16:37)
[2017-10-06] MEDS ORDERED: ASPIRIN 81 MG CHEW PO STA (16:38)
[2017-10-06] MEDS ORDERED: LORAZEPAM 0.5 MG TAB PO PRN (17:30)
[2017-10-06] MEDS ORDERED: ONDANSETRON 8 MG TAB PO PRN (17:30)
[2017-10-06] MEDS ORDERED: POLYETHYLENE (MIRALAX) 17 GM PACK PO PRN (17:30)
[2017-10-06] MEDS ORDERED: ONDANSETRON INJ 2 MG/ML 2 ML VIAL IV PRN (17:45)
[2017-10-06] MEDS ORDERED: WARFARIN SOD 5 MG TAB PO ONE (17:45)
[2017-10-06] MEDS ORDERED: ACETAMINOPHEN 325 MG TAB PO PRN (17:45)
[2017-10-06] MEDS ORDERED: ENOXAPARIN 100 MG/1ML SYR SQ ONE (18:02)
[2017-10-06 18:13] VITALS: BP 173/105; PULSE 83; TEMP 36.5; O2SAT 100
--- NOTE | 2017-10-06 18:48 | HISTORY & PHYSICAL EXAMINATION ---
DATE OF ADMISSION: 10/06/2017 PRIMARY CARE PHYSICIAN: Dr. Mccoy. CHIEF COMPLAINT: Slurred speech with dizziness and numbness in the right extremity at around lunch breakfast time, this morning. HISTORY OF PRESENT COMPLAINT: She is an 87-year-old female with significant past medical history of atrial fibrillation on long-term anticoagulation, chronic kidney disease, status post cardiac pacemaker, hypertension, esophageal reflux, history of tachybrady syndrome, hyperlipidemia, hypothyroidism and also spinal stenosis, apparently has been complaining of slurred speech with dizziness and numbness involving the right little finger and right sided extremities after breakfast this morning. The condition lasted for about half an hour when she was brought into the Emergency Room and the symptoms resolved. With the symptoms, she was trying to get up and get into the car and she was almost passed out, but she did not pass out as such. She feels very weak and lethargic, but in the ER, all of her symptoms resolved. Apparently, she was in the ER yesterday, not feeling well and she was noted to have high blood pressure. A CAT scan of the head and chest x-ray unremarkable. She was sent home yesterday. She was feeling good throughout the whole day yesterday and also she had a good sleep last night. She woke up this morning and after breakfast, she has had all those symptoms of TIA, which is resolved right now, and she does not have any symptoms at this moment. 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 PAST SURGICAL HISTORY: Significant for left knee arthroplasty, cataract surgery, pacemaker insertion, cholecystectomy, and repair of ruptured rotator cuff on the right side. FAMILY HISTORY: Father had arthritis, mother had arthritis. Also, father of heart disease and hypertension. Mother did have multiple myeloma Cancer of the colon. SOCIAL HISTORY: She is a . She does not use any alcohol. She does not smoke and she he has been reasonably active. REVIEW OF SYSTEMS: Other systemic review unremarkable except those mentioned in history of present complaint. ALLERGIES: SHE IS ALLERGIC TO CLONIDINE AND PRAVASTATIN. MEDICATIONS: As an outpatient, she has been on artificial tears as directed, naloxone/Narcan as directed, Tylenol with codeine 1 tablet 6 hourly p.r.n., albuterol sulfate 2 puffs q.i.d. as needed, vitamin D 1000 units daily, clonidine 0.1 mg p.o. daily, digoxin 0.125 mg daily, docusate sodium 100 mg twice daily, Cymbalta 30 mg daily, fentanyl 25 mcg patch every 3 days, Hyzaar 25/100 one tablet daily, levothyroxine 50 mcg daily, lorazepam 0.5 mg t.i.d. as needed, magnesium oxide 400 mg daily, metoprolol tartrate 100 mg b.i.d., nystatin as directed, Zofran 8 mg p.o. t.i.d. p.r.n., MiraLax 17 grams daily, Metamucil 1.5 tablets daily, Requip 0.5 mg at bedtime, warfarin sodium 4 mg on Mondays and Fridays and 3 mg on other days. PHYSICAL EXAMINATION: GENERAL: On examination in the Emergency Room, she was not having any acute distress. VITAL SIGNS: Temperature afebrile; pulse is 81, irregularly irregular; blood pressure 162/139, saturation was 98% on room air. HEENT: Unremarkable. NECK: Supple. No JVD, no bruit. CHEST: Decreased breath sounds at bases but no wheezing and/or crackles. HEART: S1, S2 irregular. No definite murmur. ABDOMEN: Soft, benign, nontender, no organomegaly. Bowel sounds present. EXTREMITIES: 1+ edema bilaterally. She does have bruising with status post recent fall. MUSCULOSKELETAL SYSTEM: No acute arthritis involving any joint. CENTRAL NERVOUS SYSTEM: She was alert, awake, oriented x3 and no focal sensory and/or motor deficit appreciated. There is no abnormality in the face as well. LABORATORY DATA: Noted today - white count was 10.33, H&H 10.8/33.1, platelets was 281; normal differential. Sodium 137, potassium 3.8, chloride 104, carbon dioxide 28, BUN 29, creatinine 1.35, random glucose 103, and magnesium 1.7. Troponin was 0.023. INR was 1.8, it was 2.0 yesterday. UA examination pending. IMAGING DATA: CT of the head did not show any acute events. Chest x-ray - cardiomegaly with resolving pulmonary vascular congestion. No evidence of focal pulmonary consolidation. EKG - paced rhythm, 75 per minute, ST-T segment determination not possible. IMPRESSION AND PLAN: 1. Transient ischemic attack. The patient's symptoms resolved. Initially, a stroke alert was called in, but the symptoms resolved and it was never performed. Her INR is 1.8 today. She may have embolic stroke or embolic transient ischemic attack. Will give her Lovenox 1 dose and increasing dose of Coumadin to 5 mg today and check INR tomorrow. We will check her pacemaker and get carotid ultrasound and also echocardiogram. Neurology evaluation will be done tomorrow. She also received a dose of aspirin on coming to the Emergency Room. The aspirin dose and requirement will depend on following neurological evaluation. 2. Atrial fibrillation on anticoagulation, her rate is controlled. She has a paced rhythm. We will interrogate her pacemaker and continue current medications including Coumadin. 3. Hypertension. Blood pressure is a little bit high. Will not give any extra medication at this time, but monitor while in the hospital. 3. Esophageal reflux. Continue with proton pump inhibitor. 4. Spinal stenosis, chronic back pain. Continue with her chronic pain medications. 5. Chronic kidney disease, stage III. Will monitor kidney function while in the hospital. No electrolyte abnormality at this time. 6. Gastrointestinal prophylaxis with Protonix. 7. Deep venous thrombosis prophylaxis, on Coumadin. 8. Code status. She will be a full code. In my clinical judgment, the beneficiary meets criteria as per CMS for 2-midnight stay in the hospital. SHALONDA
[2017-10-06 18:55] VITALS: BP 204/106; PULSE 62; TEMP 36.6; O2SAT 94; Ht 167.6 cm; Wt 98.4 kg
[2017-10-06] MEDS ORDERED: IV FLUIDS COMPLETED PRN (19:30)
[2017-10-06] MEDS ORDERED: ALBUTEROL HFA 8 GM INHALER INH PRN (19:30)
[2017-10-06 20:00] VITALS: BP 163/75; PULSE 85; TEMP 36.5; O2SAT 96; O2SAT 98
[2017-10-06] MEDS: FENTANYL PATCH REMOVE & WASTE SCH (20:21)
[2017-10-06] MEDS: FENTANYL 25 MCG/HR TDSY TD SCH (21:10)
[2017-10-06] MEDS: NYSTATIN/TRIAMCINOLONE CR 15 GM TUBE EXT SCH (21:11)
[2017-10-06] MEDS: ROPINIROLE HCL 0.25 MG TAB PO SCH (21:13)
--- NOTE | 2017-10-06 21:13 | DIAGNOSTIC IMAGING REPORT ---
ULTRASOUND OF THE CAROTID ARTERIES CLINICAL HISTORY: Stroke COMPARISON STUDY: None. TECHNIQUE: Real-time, grayscale, and color Doppler sonography of the carotid arteries was performed. Imaging reviewed in the transverse and longitudinal planes. NASCET criteria was utilized for stenosis calcification. FINDINGS: There is mild atherosclerotic plaque present . The peak systolic velocity within the right internal carotid artery is 58 cm/sec. The systolic velocity ratio of right internal to common carotid artery is 0.9. The peak systolic velocity within the left internal carotid artery is 67 cm/sec. The systolic velocity ratio left internal to common carotid artery is 1.5. Antegrade flow is seen in the vertebral arteries. The external carotid arteries are patent. IMPRESSION: No evidence of hemodynamically significant carotid stenosis. Electronically signed by: Saul Washington M.D. 10/06/2017 9:11 PM Dictated Date/Time: 10/06/2017 9:10 PM
[2017-10-06] MEDS: METOPROLOL TARTRATE 100 MG TAB PO SCH (21:16)
[2017-10-06] MEDS: DOCUSATE SODIUM 100 MG CAP PO SCH (21:16)
[2017-10-06 23:33] VITALS: BP 148/92; PULSE 67; TEMP 36.9; O2SAT 96
[2017-10-07] VITALS (8 sets, daily range): BP systolic 144–171; BP diastolic 76–103; PULSE 67–90; TEMP 36.4–37; O2SAT 92–98
[2017-10-07] MEDS: CHECK FENTANYL PATCH PLACEMENT SCH ×3 (00:37→16:16)
[2017-10-07 05:33] LABS: HEMOGLOBIN 9.9 g/dL (12.0-16.0); MEAN CELL VOLUME 97.1 fL (80-100); MEAN PLATELET VOLUME 9.8 fL (7.4-10.4); PLATELET COUNT 223 K/uL (130-400); RED CELL DISTRIBUTION WIDTH CV 15.3 % (11.5-14.5); RED CELL DISTRIBUTION WIDTH SD 53.7 fL (36.4-46.3); WHITE BLOOD COUNT 8.38 K/uL (4.8-10.8)
[2017-10-07] MEDS: LEVOTHYROXINE 50 MCG TAB PO SCH (05:38)
[2017-10-07 05:44] LABS: INR 2.1 (0.9-1.1)
[2017-10-07 05:58] LABS: CREATININE 1.24 mg/dl (0.60-1.20)
[2017-10-07 05:59] LABS: CALCIUM 8.5 mg/dl (8.5-10.1); POTASSIUM 3.6 mmol/L (3.5-5.1)
[2017-10-07] MEDS: CHOLECALCIFEROL 1000 INTER.UNIT TAB PO SCH (08:03)
[2017-10-07] MEDS: MAGNESIUM OXIDE 400 MG TAB PO SCH (08:03)
[2017-10-07] MEDS: PSYLLIUM 58.6% PWD PACK S\\F PO SCH (08:03)
[2017-10-07] MEDS: DULOXETINE (CYMBALTA) 30 MG CAP PO SCH (08:04)
[2017-10-07] MEDS: DOCUSATE SODIUM 100 MG CAP PO SCH ×2 (08:04→21:18)
[2017-10-07] MEDS: LOSARTAN/HCTZ 50-12.5 EA TAB PO SCH (08:04)
[2017-10-07] MEDS: METOPROLOL TARTRATE 100 MG TAB PO SCH ×2 (08:04→21:17)
[2017-10-07] MEDS: CLONIDINE HCL 0.1 MG TAB PO SCH (08:05)
[2017-10-07] MEDS: NYSTATIN/TRIAMCINOLONE CR 15 GM TUBE EXT SCH ×2 (08:05→21:16)
[2017-10-07] MEDS ORDERED: LOSARTAN/HCTZ 50-12.5 EA TAB PO SCH (09:00)
--- NOTE | 2017-10-07 09:40 | DIAGNOSTIC IMAGING REPORT ---
L KNEE 3 VIEWS, L TIBIA/FIBULA 2 VIEWS ROUTINE CLINICAL HISTORY: Left knee and lower leg pain. COMPARISON STUDY: Left knee 08/04/2011. FINDINGS: There is a left total knee arthroplasty. The hardware is intact. No knee effusion. Soft tissues are unremarkable. No fracture or dislocation within the left knee, tibia, or fibula. Mild vascular calcifications. IMPRESSION: No fracture or dislocation within the left knee or left lower leg. Electronically signed by: Lorne Arellano M.D. 10/07/2017 9:39 AM Dictated Date/Time: 10/07/2017 9:37 AM
--- NOTE | 2017-10-07 13:00 | ECHOCARDIOGRAM REPORT ---
*NOTICE TO RECEIVING [employer] This information is strictly Confidential and protected under [place] law. [place] law prohibits you from making any further disclosure of this information unless further disclosure is expressly permitted by the written consent of the person to whom it pertains or is authorized by law. A general authorization for the release of medical or other information is not sufficient for this purpose. Hospital accepts no responsibility if the information is made available to any other person, INCLUDING THE PATIENT. Interpretation Summary * Name: JANNETH HO Study Date: 10/07/2017 10:07 AM BP: 165/84 mmHg * Patient Location: [facility] [place] HR: 67 * : 1930 (M/d/yyyy) Gender: Female Height: 65 in * Age: 87 yrs Ethnicity: [place] Weight: 236 lb * Ordering Physician: Shelley Burroughs * Referring Physician: Self, Referred * Performed By: Candida Harris RDCS * * Reason For Study: Atrial fibrillation * BSA: 2.1 m2 * -- Conclusions -- * There is moderate concentric left ventricular hypertrophy. * Ejection Fraction = 55-60%. * The right ventricular systolic function is normal. * The left atrium is severely dilated. * The right atrium is severely dilated. * Aortic valve sclerosis moderate, without significant aortic valvular stenosis. * Moderate aortic regurgitation. * There is severe mitral regurgitation. * There is severe tricuspid regurgitation. Procedure Details * A complete two-dimensional transthoracic echocardiogram was performed (2D, M-mode, Doppler and color flow Doppler). Left Ventricle * The left ventricle is normal in size. * There is moderate concentric left ventricular hypertrophy. * Ejection Fraction = 55-60%. * The left ventricular wall motion is normal. Right Ventricle * The right ventricle is normal size. * The right ventricular systolic function is normal. Atria * The left atrium is severely dilated. * The right atrium is severely dilated. * The interatrial septum is intact with no evidence for an atrial septal defect. Mitral Valve * The mitral valve leaflets appear thickened, but open well. * There is severe mitral regurgitation. Tricuspid Valve * The tricuspid valve is not well visualized, but is grossly normal. * There is severe tricuspid regurgitation. Aortic Valve * Aortic valve sclerosis moderate, without significant aortic valvular stenosis. * Moderate aortic regurgitation. Pulmonic Valve * The pulmonic valve is not well visualized. Great Vessels * The aortic root and proximal ascending aorta are normal sized. Pericardium/Pleural * There is no pericardial effusion. MMode 2D Measurements and Calculations IVSd 1.5 cm IVSs 1.7 cm LVIDd 4.5 cm LVIDs 3.1 cm LVPWd 1.6 cm LVPWs 2.0 cm IVS/LVPW 0.95 FS 31.3 % EDV(Teich) 92.8 ml ESV(Teich) 37.9 ml EF(Teich) 59.2 % EDV(cubed) 91.5 ml ESV(cubed) 29.7 ml EF(cubed) 67.5 % % IVS thick 17.5 % % LVPW thick 26.4 % LV mass(C)d 281.4 grams LV mass(C)dI 132.6 grams/m\S\2 LV mass(C)s 237.9 grams LV mass(C)sI 112.1 grams/m\S\2 SV(Teich) 54.9 ml SI(Teich) 25.9 ml/m\S\2 SV(cubed) 61.8 ml SI(cubed) 29.1 ml/m\S\2 Ao root diam 3.3 cm Ao root area 8.5 cm\S\2 ACS 1.5 cm LA dimension 6.1 cm LA/Ao 1.9 LVAd ap4 20.3 cm\S\2 LVLd ap4 6.8 cm EDV(MOD-sp4) 53.7 ml EDV(sp4-el) 51.7 ml LVAs ap4 12.9 cm\S\2 LVLs ap4 6.9 cm ESV(MOD-sp4) 21.6 ml ESV(sp4-el) 20.4 ml EF(MOD-sp4) 59.8 % EF(sp4-el) 60.6 % LVAd ap2 19.4 cm\S\2 LVLd ap2 8.0 cm EDV(MOD-sp2) 41.1 ml EDV(sp2-el) 40.1 ml LVAs ap2 11.1 cm\S\2 LVLs ap2 7.5 cm ESV(MOD-sp2) 15.2 ml ESV(sp2-el) 14.0 ml EF(MOD-sp2) 63.1 % EF(sp2-el) 65.0 % LVLd %diff 15.4 % EDV(MOD-bp) 50.1 ml LVLs %diff 7.5 % ESV(MOD-bp) 17.5 ml EF(MOD-bp) 65.0 % SV(MOD-sp4) 32.1 ml SI(MOD-sp4) 15.1 ml/m\S\2 SV(MOD-sp2) 25.9 ml SI(MOD-sp2) 12.2 ml/m\S\2 SV(MOD-bp) 32.6 ml SI(MOD-bp) 15.4 ml/m\S\2 SV(sp4-el) 31.3 ml SI(sp4-el) 14.8 ml/m\S\2 SV(sp2-el) 26.1 ml SI(sp2-el) 12.3 ml/m\S\2 Doppler Measurements and Calculations MV E max kameron 117.0 cm/sec MV dec time 0.14 sec Ao V2 max 152.7 cm/sec Ao max PG 9.3 mmHg Ao max PG (full) 3.8 mmHg AI max kameron 405.3 cm/sec AI max PG 65.8 mmHg AI dec slope 164.2 cm/sec\S\2 AI P1/2t 722.9 msec LV V1 max PG 5.6 mmHg LV V1 max 117.9 cm/sec MR max kameron 603.9 cm/sec MR max PG 145.9 mmHg MR mean kameron 445.7 cm/sec MR mean PG 89.3 mmHg MR VTI 189.8 cm MR PISA 1.3 cm\S\2 MR PISA radius 0.46 cm PA V2 max 101.1 cm/sec PA max PG 4.1 mmHg PI max kameron 225.3 cm/sec PI max PG 20.3 mmHg PI dec slope 284.0 cm/sec\S\2 PI P1/2t 232.4 msec TR max kameron 300.6 cm/sec
--- NOTE | 2017-10-07 13:48 | NEUROLOGY CONSULTATION ---
DATE OF CONSULTATION: 10/07/2017 REASON FOR CONSULTATION: Possible transient ischemic attack. HISTORY OF PRESENT ILLNESS: Ms. Mendoza is an 87-year-old right-handed female with a history of atrial fibrillation on long-term anticoagulation, chronic kidney disease status post pacemaker, hypertension, reflux, tachybrady, hyperlipidemia, hypothyroidism, spinal stenosis. On the day of admission complained of slurred speech and tingling in the right fifth finger lasting about 20 minutes, not accompanied by any headache or other cranial nerve symptoms or right lower extremity symptoms. Symptoms resolved spontaneously. When she was trying to get into the car, she had some difficulty doing so, and almost lost consciousness, she felt weak and lethargic, but her symptoms resolved. Today, while in the bed after using the commode, she had some tingling of left fingers 4 and 5 without any cranial nerve abnormalities, neck, arm pain or leg symptoms; it resolved in about 10 minutes. It was unclear if patient had been leaning on her elbow. She denies a prior history of stroke or transient ischemic attack. She has been recently well. She has not had any head or neck injury, medical or dental procedures. She is compliant with her Coumadin. Her INR was 1.8. PAST MEDICAL HISTORY: AFib, chronic kidney disease, pacemaker, hypertension, hyperlipidemia, reflux, hypothyroidism. PAST SURGICAL HISTORY: Left knee arthroplasty, cataract surgery, pacemaker, cholecystectomy, ruptured rotator cuff on the right. FAMILY HISTORY: Arthritis, heart disease, hypertension, multiple myeloma, cancer. SOCIAL HISTORY: The patient is a . She lives with her son. She does not smoke or drink. ALLERGIES: CLONIDINE AND PRAVASTATIN. MEDICATIONS AT HOME: Artificial tears, Narcan, Tylenol with Codeine, albuterol, vitamin D, clonidine, digoxin, docusate, Cymbalta, fentanyl, Hyzaar, levothyroxine, lorazepam, magnesium, metoprolol, Zofran, MiraLax, Metamucil, Requip, warfarin. CT of the head, which I have reviewed, shows microvascular ischemic changes. Carotid ultrasound, no hemodynamically significant stenosis. Electrocardiogram, ventricular paced rhythm. LABORATORY DATA: White count 10.3, H&H 10.8/33, platelet count 281. INR was 1.8, it is 2.1 today. The patient was on Lovenox bridge. Sodium 137, potassium 3.8, BUN and creatinine 29/1.35, glucose 103, magnesium 1.7. CK 301. MB 6.1. Troponin negative. Urinalysis: Small leukocyte esterase, greater than 30 epithelial cells, 4+ bacteria, nitrites negative. Digoxin 0.7. PHYSICAL EXAMINATION: GENERAL: The patient is awake and alert. Speech and language are normal. Her affect is appropriate. VITAL SIGNS: 36.4, 72, 20, 158/95, and 97%. GENERAL: The patient is somewhat inconsistent historian. However, she is alert and oriented x3. No right/left confusion. No aphasia. NECK: No carotid bruits are noted. CARDIOVASCULAR: No heart murmurs. Heart is regular. EXTREMITIES: There is significant ecchymosis in both hands and upper arms. Tinel's is negative about the left ulnar groove. NEUROLOGIC: Pupils are equal. Optic nerves not visualized. Normal rodriguez, motility, facial sensation and symmetry. Speech and language are normal. Tongue is midline. Motor: Normal bulk and tone. I appreciate no weakness. There is no drift, equal rapid alternating movements. Lower extremity strength is full. Reflexes are symmetric. Toes are downgoing. [id number]-[id number] and ctuu-rf-[id number] are normal. Sensation is decreased to light touch in the left fifth finger. IMPRESSION: Episode yesterday of dysarthria and some tingling in the right fingers 4 and 5, sounds like a transient ischemic attack. I agree with optimization of her anticoagulation. I would recommend adding antiplatelet therapy with aspirin 81 mg if there is no contraindication. Gradual control of blood pressure. Assessment of lipids. Echocardiography with a bubble study and carotid ultrasound. I suspect patient's tingling in her left fifth finger without other sx is not transient ischemia but suggest some transient nerve impingement. We will follow with you. SHALONDA
[2017-10-07] MEDS ORDERED: ASPIRIN 81 MG ECTAB PO ONE (16:00)
[2017-10-07] MEDS ORDERED: HydrALAZINE HCL 20 MG/ML VIAL ONE (16:08)
[2017-10-07] MEDS: WARFARIN SOD 3 MG TAB PO SCH (16:11)
[2017-10-07] MEDS: DIGOXIN 0.125 MG TAB PO SCH (16:12)
[2017-10-07] MEDS ORDERED: HydrALAZINE HCL 20 MG/ML VIAL IV. PRN (16:15)
[2017-10-07] MEDS: CODEINE PO PRN (16:17)
[2017-10-07] MEDS: ACETAMINOPHEN PO PRN (16:17)
--- NOTE | 2017-10-07 17:16 | Progress Note ---
Internal Med Progress Note Date of Service: Oct 07, 2017. Provider Documentation: SUBJECTIVE: resting comfortably no more episodes of dysarthria or tingliness afebrile wants to go home denies any pain or nausea resting comfortably OBJECTIVE: Vital Signs-as noted below Exam: General alert and awake . not in distress ENT-Normal hearing Neck-no neck masses Lungs-Cta b/l no wheezing or crackles Heart-S1 and S2 heard regular No murmurs Abdomen-Soft Bowel sounds present non tender No distension Extremities-no edema no erythema Neuro-alert and awake moves extremities non focal Lab data as noted below. ASSESSMENT & PLAN: 1. Transient ischemic attack. The patient's symptoms resolved. stroke alert was called initially but her symptoms resolved Ct head unremarkable carotid us unremarkable echo shows valvular heart disease inr 1.8 on presentation and dose of Lovenox given for bridging. Coumadin 5mg given inr 2.1 today f/u lipid profile appreciate neurology inputs monitor in tele for now. pt/ot 2. Atrial fibrillation on anticoagulation, her rate is controlled. s/p pacemaker. On lopressor and digoxin.. on coumadin inr 1.8 on presentation. inr 2.1 today. 3. Hypertension. elevated continue home meds iv hydralazine prn if continue to be elevated will add amlodipine. 3. Esophageal reflux. On proton pump inhibitor. 4. Spinal stenosis, chronic back pain. On chronic pain medications. 5. Chronic kidney disease, stage III. Will monitor kidney function while in the hospital. No electrolyte abnormality at this time. 6. Deep venous thrombosis prophylaxis, on Coumadin. 8. Code status. full code. DISPOSITION monitor in tele possible d/c in am if stable Vital Signs: Date Time Temp Pulse Resp B/P (MAP) Pulse Ox O2 Delivery O2 Flow Rate FiO2 10/07/17 16:12 67 10/07/17 15:20 37.0 83 20 171/103 (125) 96 Room Air 10/07/17 12:00 Room Air 10/07/17 11:57 36.4 72 20 158/95 (116) 97 Room Air 10/07/17 08:00 Room Air 10/07/17 07:59 36.9 80 18 146/83 (104) 96 Room Air 10/07/17 04:14 36.5 67 22 165/84 (111) 92 CPAP 10/07/17 04:00 98 Nasal Cannula 3.0 10/07/17 00:00 98 Nasal Cannula 3.0 10/06/17 23:33 36.9 67 22 148/92 (110) 96 CPAP 10/06/17 20:00 98 Nasal Cannula 3.0 10/06/17 20:00 36.5 85 23 163/75 (104) 96 Nasal Cannula 3.0 85 10/06/17 18:55 36.6 62 16 204/106 94 Nasal Cannula 2.0 10/06/17 18:46 63 16 197/100 10/06/17 18:13 36.5 83 22 173/105 (127) 100 Nasal Cannula 3.0 Lab Results: Results Past 24 Hours Test 10/07/17 02:06 10/07/17 04:24 10/07/17 05:22 10/07/17 06:09 Range/Units Urine Color YELLOW Urine Appearance CLOUDY CLEAR Urine pH 6.5 4.5-7.5 Urine Specific [place] 1.019 1.000-1.030 Urine Protein 1+ NEG Urine Glucose (UA) NEG NEG Urine Ketones NEG NEG Urine Occult Blood NEG NEG Urine Nitrite NEG NEG Urine Bilirubin NEG NEG Urine Urobilinogen NEG NEG Urine Leukocyte Esterase SMALL NEG Urine WBC (Auto) 1-5 0-5 /hpf Urine RBC (Auto) 0-4 0-4 /hpf Urine Hyaline Casts (Auto) 1-5 0-5 /lpf Urine Epithelial Cells (Auto) >30 0-5 /lpf Urine Bacteria (Auto) 4+ NEG Bedside Glucose 108 101 70-90 mg/dl White Blood Count 8.38 4.8-10.8 K/uL Red Blood Count 3.09 4.2-5.4 M/uL Hemoglobin 9.9 12.0-16.0 g/dL Hematocrit 30.0 37-47 % Mean Corpuscular Volume 97.1 80-100 fL Mean Corpuscular Hemoglobin 32.0 25-34 pg Mean Corpuscular Hemoglobin Concent 33.0 32-36 g/dl RDW Standard Deviation 53.7 36.4-46.3 fL RDW Coefficient of Variation 15.3 11.5-14.5 % Platelet Count 223 130-400 K/uL Mean Platelet Volume 9.8 7.4-10.4 fL Prothrombin Time 22.2 9.0-12.0 SECONDS Prothromb Time International Ratio 2.1 0.9-1.1 Sodium Level 136 136-145 mmol/L Potassium Level 3.6 3.5-5.1 mmol/L Chloride Level 103 98-107 mmol/L Carbon Dioxide Level 27 21-32 mmol/L Anion Gap 6.0 3-11 mmol/L Blood Urea Nitrogen 30 7-18 mg/dl Creatinine 1.24 0.60-1.20 mg/dl Est Creatinine Clear Calc Drug Dose 38.9 ml/min Estimated GFR () 45.2 Estimated GFR (Non- 39.0 BUN/Creatinine Ratio 24.5 10-20 Random Glucose 103 70-99 mg/dl Calcium Level 8.5 8.5-10.1 mg/dl
[2017-10-07] MEDS: ROPINIROLE HCL 0.25 MG TAB PO SCH (21:17)
[2017-10-08] VITALS (9 sets, daily range): BP systolic 142–173; BP diastolic 75–93; PULSE 60–100; TEMP 36.5–37.7; O2SAT 91–98
[2017-10-08] MEDS: CHECK FENTANYL PATCH PLACEMENT SCH ×3 (00:19→16:00)
[2017-10-08 05:51] LABS: INR 2.9 (0.9-1.1)
[2017-10-08] MEDS: LEVOTHYROXINE 50 MCG TAB PO SCH (06:26)
[2017-10-08] MEDS: MAGNESIUM OXIDE 400 MG TAB PO SCH (07:44)
[2017-10-08] MEDS: CHOLECALCIFEROL 1000 INTER.UNIT TAB PO SCH (07:45)
[2017-10-08] MEDS: LOSARTAN/HCTZ 50-12.5 EA TAB PO SCH (07:45)
[2017-10-08] MEDS: CLONIDINE HCL 0.1 MG TAB PO SCH (07:45)
[2017-10-08] MEDS: DOCUSATE SODIUM 100 MG CAP PO SCH ×2 (07:45→22:07)
[2017-10-08] MEDS: DULOXETINE (CYMBALTA) 30 MG CAP PO SCH (07:45)
[2017-10-08] MEDS: PSYLLIUM 58.6% PWD PACK S\\F PO SCH (09:00)
[2017-10-08] MEDS: ASPIRIN 81 MG ECTAB PO SCH (09:04)
[2017-10-08] MEDS: METOPROLOL TARTRATE 100 MG TAB PO SCH ×2 (09:04→22:08)
[2017-10-08] MEDS: NYSTATIN/TRIAMCINOLONE CR 15 GM TUBE EXT SCH ×2 (09:05→22:11)
[2017-10-08] MEDS ORDERED: ASPI81TA28 PO (09:48)
[2017-10-08] MEDS ORDERED: NRV5 PO (09:48)
--- NOTE | 2017-10-08 09:52 | Discharge Instructions ---
Discharge Instructions Date of Service Oct 08, 2017. Admission Reason for Admission: Htn (Hypertension), Tia(Transient Ischemic Attach) Discharge Discharge Diagnosis / Problem: TIA, uncontrolled htn Discharge Goals Goal(s): Decrease discomfort, Improve function Activity Recommendations Activity Limitations: resume your previous activity . Instructions / Follow-Up Instructions / Follow-Up FOLLOWUP WITH FAMILY DOCTOR ON Oct AT 2:45PM FOLLOWUP WITH CARDIOLOGY SCHEDULED FOLLOWUP WITH COUMADIN CLINIC SCHEDULED. BLOOD PRESSURE FOLLOWUP WITH FAMILY DOCTOR. CHOLESTEROL LDL 67. HDL 31. ANY TREATMENT PER FAMILY DOCTOR. PLEASE GO THROUGH MEDICATION LIST CAREFULLY. Risk Factors for Stroke: You can reduce your chances of stroke by working with your medical provider to adopt a healthy lifestyle. Some specific ways to lower your chance of stroke are: * If you are a smoker, now is the time to stop smoking cigarettes * If you are diabetic, improve the control of your blood sugars * Avoid excessive amounts of alcohol * Control high blood pressure * Lose weight if you are overweight * Be sure to lead an active lifestyle * Eat a healthy diet low in salt, cholesterol and fat You should know about other risk factors for stroke that you are unable to control. These include: * Age 55 years or older * Male gender * Certain racial groups: , or / * Family History of Stroke, Mini stroke or Heart Attack * Sickle Cell Disease Follow Up: It is important for you to keep your follow up appointments with your medical provider. Current Hospital Diet Patient's current hospital diet: AHA Diet (Heart Healthy) Discharge Diet Recommended Diet: AHA Diet (Heart Healthy) Pending Studies Studies pending at discharge: no Laboratory Results Lipid Panel Test 10/08/17 05:13 Range/Units Triglycerides Level 97 0-150 mg/dl Cholesterol Level 115 0-200 mg/dl HDL Cholesterol 31 mg/dl Cholesterol/HDL Ratio 3.7 LDL Cholesterol, Calculated 65 mg/dl Medical Emergencies . Who to Call and When: Medical Emergencies: Call 911 immediately if you experience any of the following warning signs and symptoms of Stroke: * Sudden numbness or weakness of the face, arm or leg, especially on one side of the body * Sudden confusion, trouble speaking or understanding * Sudden trouble seeing in one or both eyes * Sudden trouble walking, dizziness, loss of balance or coordination * Sudden severe headache with no cause Do not delay calling 911 if you experience any warning signs or symptoms of a stroke. Delay in seeking medical attention may affect what treatments can be given to you. . Non-Emergent Contact Non-Emergency issues call your: Primary Care Provider . . "Provider Documentation" section prepared by Josep Ramirez. . Stroke Core Measures Reason no t-PA for Stroke: Treatment not indicated Reason no antithrom by day 2: Treatment provided - N/A Reason no antithrom at D/C: Treatment provided - N/A Reason no statin at D/C: Drug Allergy (ALSO LDL<70) Reason no anticoag w/a fib: Treatment provided - N/A VTE Core Measure Inpt VTE Proph given/why not?: Warfarin (Coumadin)
--- NOTE | 2017-10-08 12:15 | Progress Note ---
Internal Med Progress Note Date of Service: Oct 08, 2017. Provider Documentation: SUBJECTIVE: resting comfortably denies any tingliness no difficulty swallowing no pain or sob wants to go home OBJECTIVE: Vital Signs-as noted below Exam: General alert and awake . not in distress ENT-Normal hearing Neck-no neck masses Lungs-Cta b/l no wheezing or crackles Heart-S1 and S2 heard regular No murmurs Abdomen-Soft Bowel sounds present non tender No distension Extremities-no edema no erythema Neuro-alert and awake moves extremities non focal Lab data as noted below. ASSESSMENT & PLAN: 1. Transient ischemic attack. The patient's symptoms resolved. stroke alert was called initially but her symptoms resolved Ct head unremarkable carotid us unremarkable echo shows valvular heart disease inr 1.8 on presentation and dose of Lovenox given for bridging. Coumadin 5mg given inr 2.9today lipid profile-LDL 67. HDL 31 total cholesterol 115, TG 97 appreciate neurology inputs added aspirin stable d/c home 2. Atrial fibrillation on anticoagulation, her rate is controlled. s/p pacemaker. On lopressor and digoxin.. on coumadin inr 1.8 on presentation. inr 2.9 today. has appointment with Coumadin clinic. 3. Hypertension. elevated continue home meds iv hydralazine prn if continue to be elevated will add amlodipine. added amlodinpe 5mg daily on discharge f/u with pcp and cardiology 4. Valvular heart disease f/u with cardiology has appointment 5. Esophageal reflux. On proton pump inhibitor. 6. Spinal stenosis, chronic back pain. On chronic pain medications. 7. Chronic kidney disease, stage III. Will monitor kidney function while in the hospital. No electrolyte abnormality at this time. 8. Deep venous thrombosis prophylaxis, on Coumadin. 9. Code status. full code. DISPOSITION discharged home Vital Signs: Date Time Temp Pulse Resp B/P (MAP) Pulse Ox O2 Delivery O2 Flow Rate FiO2 10/08/17 11:44 36.7 60 16 166/75 (105) 95 CPAP 10/08/17 09:58 36.6 70 20 98 Nasal Cannula 10/08/17 08:00 Room Air 10/08/17 07:15 36.6 70 20 158/86 (110) 98 CPAP 10/08/17 04:16 36.9 73 16 145/82 (103) 98 10/08/17 04:00 98 CPAP 10/08/17 00:11 36.7 72 18 165/93 (117) 97 152/92 (112) 10/08/17 00:00 98 CPAP 10/07/17 20:00 Room Air 10/07/17 19:42 36.9 90 19 153/76 (101) 92 Room Air 10/07/17 18:19 144/96 (112) 10/07/17 16:12 67 10/07/17 16:00 Room Air 10/07/17 15:20 37.0 83 20 171/103 (125) 96 Room Air Lab Results: Results Past 24 Hours Test 10/08/17 05:13 Range/Units Prothrombin Time 29.4 9.0-12.0 SECONDS Prothromb Time International Ratio 2.9 0.9-1.1 Triglycerides Level 97 0-150 mg/dl Cholesterol Level 115 0-200 mg/dl HDL Cholesterol 31 mg/dl LDL Cholesterol, Calculated 65 mg/dl VLDL Cholesterol, Calculated 19 mg/dl Cholesterol/HDL Ratio 3.7
--- NOTE | 2017-10-08 13:52 | PROGRESS NOTE ---
DATE: 10/08/2017 SUBJECTIVE: I am seeing Mrs. Mendoza in followup with poorly localizing transient ischemic attack on the day of admission with dysarthria and numbness in the right fingers 4 and 5 that lasted 10-20 minutes. She is unable to have an MRI. CT was unremarkable. Carotid ultrasound showed no significant stenosis. Today, while her daughter was here to pick her up, the patient indicated that she had slurred speech. Daughter indicated that it lasted less than 30 seconds. The daughter did not notice this slurred speech, but was made aware of it by her mother. The daughter indicates that it was very mild at most. She may have had some tingling in the right index finger with that. Of note, the nurse is an RN at [employer]. The patient's blood pressure and pulse were unremarkable. She was not in any significant dysrhythmia. She did not have any headache. OBJECTIVE: On examination, she is awake and alert. There is normal speech and language. Affect appropriate. There is normal visual field, facial symmetry, symmetric strength, no drift. Normal rapid alternating movements and intact sensation in both hands. IMPRESSION: Pt with less than 30 sec of mild dysarthria, in fact her daughter who is a nurse, really did not appreciate the dysarthria, speaks against this being a transient ischemic attack. I think we should be cautious and do a CTA of the head and neck, although likely we will not find anything that is otherwise treatable and furthermore, this spell is nonlocalized. Continue aspirin. She is therapeutic on Coumadin and no other toxic metabolic reason was found. We will follow with you. SHALONDA
--- NOTE | 2017-10-08 14:11 | DIAGNOSTIC IMAGING REPORT ---
CT HEAD ANGIO WITH CONTRAST CLINICAL HISTORY: Acute stroke TECHNIQUE: CT angiography of the head was performed in a dynamic helical fashion during intravenous administration of 115 cc of Optiray 320. A dose lowering technique was utilized adhering to the principles of ALARA. MIP imaging was performed CT DOSE: 646.57 mGy.cm COMPARISON STUDY: Noncontrast head CT dated 10/06/2017 FINDINGS: There are no lesion suspicious for aneurysm. There are no major intracranial branch occlusions. The dural venous sinuses appear patent. There is a hypoplastic right A1 segment. IMPRESSION: Hypoplastic right A1 segment. Otherwise unremarkable CT angiography of the brain. Electronically signed by: Saul Washington M.D. 10/08/2017 2:10 PM Dictated Date/Time: 10/08/2017 2:07 PM
--- NOTE | 2017-10-08 14:15 | DIAGNOSTIC IMAGING REPORT ---
CT NECK ANGIO WITH CONTRAST CLINICAL HISTORY: Stroke. COMPARISON STUDY: No previous studies for comparison. TECHNIQUE: CT angiography was performed from the aortic arch to the skull base. MIP imaging was performed. The patient was scanned in a dynamic helical fashion during intravenous administration of 115 cc of Optiray 320. A dose lowering technique was utilized adhering to the principles of ALARA. CT DOSE: Technique: CT angiogram of the carotid and vertebral arteries was obtained using intravenous contrast and 3-D reconstruction. NASCET criteria was utilized. Findings: The right carotid revealed no evidence of aneurysm and no evidence of dissection. There is no evidence of hemodynamic significant stenosis. The left carotid revealed no evidence of hemodynamic significant stenosis. There is no evidence of aneurysm. There is no evidence of dissection. There is no evidence of hemodynamically significant vertebral stenosis. There is no evidence of vertebral dissection. IMPRESSION: No evidence of hemodynamically significant carotid or vertebral artery stenosis. No evidence of dissection. Electronically signed by: Saul Washington M.D. 10/08/2017 2:14 PM Dictated Date/Time: 10/08/2017 2:12 PM
[2017-10-08] MEDS: CODEINE PO PRN (15:33)
[2017-10-08] MEDS: ACETAMINOPHEN PO PRN (15:33)
[2017-10-08] MEDS ORDERED: AMLODIPINE BESYLATE 5 MG TAB PO ONE (15:45)
[2017-10-08] MEDS ORDERED: TRAMADOL HCL 50 MG TAB PO PRN (15:45)
[2017-10-08] MEDS: WARFARIN SOD 3 MG TAB PO SCH (16:45)
[2017-10-08] MEDS: ROPINIROLE HCL 0.25 MG TAB PO SCH (22:09)
[2017-10-08] MEDS: CODEINE PO SCH (22:15)
[2017-10-08] MEDS: ACETAMINOPHEN PO SCH (22:15)
[2017-10-09] VITALS (11 sets, daily range): BP systolic 98–248; BP diastolic 45–148; PULSE 62–80; TEMP 36.3–36.9; O2SAT 82–98
[2017-10-09] MEDS: CODEINE PO SCH ×5 (00:40→19:59)
[2017-10-09] MEDS: ACETAMINOPHEN PO SCH ×5 (00:40→19:59)
[2017-10-09] MEDS ORDERED: HYDROmorphone INJ 0.5 MG/0.5 ML SYR IV ONE (04:00)
[2017-10-09] MEDS ORDERED: HYDROmorphone INJ 0.5 MG/0.5 ML SYR ONE (04:04)
[2017-10-09] MEDS ORDERED: LABETALOL HCL IV 5 MG/ML 20ML IV STA ×2 (05:06→05:40)
[2017-10-09] MEDS ORDERED: LABETALOL HCL IV 5 MG/ML 20ML IV ONE (05:10)
[2017-10-09] MEDS ORDERED: HYDROmorphone INJ 1 MG/ML SYR IV STA (05:39)
[2017-10-09] MEDS: HYDROmorphone INJ 1 MG/ML SYR ONE ×2 (05:43→05:55)
[2017-10-09 05:58] LABS: INR 2.8 (0.9-1.1)
[2017-10-09] MEDS ORDERED: LABETALOL HCL IV 5 MG/ML 20ML IV PRN (06:00)
--- NOTE | 2017-10-09 06:00 | Progress Note ---
Progress Note Date of Service Oct 09, 2017. Progress Note Last evening pt / family requested that acetaminophen / codeine 60 mg be scheduled QID, not PRN. She takes it regularly QID at home. Order changed to QID schedule and she received dose at 0040. Severe frontal CAICEDO this morning. BP's elevated. CT done to rule out bleed in light of anticoagulation with warfarin- prelim report negative. Given IV hydromorphone for severe headache and IV labetalol for elevated BP's. Headache improved. Repeat IV labetalol PRN. Follow. .
--- NOTE | 2017-10-09 06:08 | DIAGNOSTIC IMAGING REPORT ---
HEAD WITHOUT CONTRAST (CT) CLINICAL HISTORY: 87 years-old Female presenting with severe headache, on warfarin. TECHNIQUE: Multidetector CT imaging of the head was performed without the use of intravenous contrast. IV contrast: None. A dose lowering technique was used consistent with the principles of ALARA (as low as reasonably achievable). COMPARISON: CTA from 10/08/[address] head from 10/06/2017. CT DOSE (mGy.cm): The estimated cumulative dose is 537.48 mGy.cm. 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 Proportional ventricular and sulcal prominence, likely age-related parenchymal volume loss. Periventricular and subcortical white matter hypoattenuation, nonspecific but likely indicative of chronic small vessel ischemic change. No mass effect or midline shift. No hemorrhage or acute territorial infarct. No extra-axial fluid collection. Mucosal thickening with aerated secretions in the left maxillary sinus. Subtle sclerosis of the left maxillary sinus wall also suggested. Bilateral marshall lenses are absent. Calvarium intact. IMPRESSION: 1. Chronic small vessel ischemic change. No acute intracranial abnormality. 2. Aerated secretions in the left maxillary sinus concerning for acute sinusitis. Furthermore, sclerosis of the left maxillary sinus wall suggest a history of chronic sinusitis. The report will be called/faxed according to standard departmental protocol. Electronically signed by: Jamie Villarreal M.D. 10/09/2017 6:07 AM Dictated Date/Time: 10/09/2017 6:03 AM
[2017-10-09] MEDS: LEVOTHYROXINE 50 MCG TAB PO SCH (06:22)
[2017-10-09] MEDS: AMPICILLIN/SULBACTAM SOD INJ 1,500 MG in SODIUM CHLORIDE 0.9% 100ML 100 ML IV SCH ×3 (06:40→18:20)
[2017-10-09] MEDS: PSYLLIUM 58.6% PWD PACK S\\F PO SCH (09:00)
[2017-10-09] MEDS: NYSTATIN/TRIAMCINOLONE CR 15 GM TUBE EXT SCH ×2 (09:00→19:48)
[2017-10-09] MEDS: DULOXETINE (CYMBALTA) 30 MG CAP PO SCH (09:33)
[2017-10-09] MEDS: MAGNESIUM OXIDE 400 MG TAB PO SCH (09:34)
[2017-10-09] MEDS: AMLODIPINE BESYLATE 5 MG TAB PO SCH (09:34)
[2017-10-09] MEDS: CLONIDINE HCL 0.1 MG TAB PO SCH ×2 (09:34→19:57)
[2017-10-09] MEDS: METOPROLOL TARTRATE 100 MG TAB PO SCH ×2 (09:34→19:58)
[2017-10-09] MEDS: DOCUSATE SODIUM 100 MG CAP PO SCH ×2 (09:35→19:49)
[2017-10-09] MEDS: LOSARTAN/HCTZ 50-12.5 EA TAB PO SCH (09:35)
[2017-10-09] MEDS: CHOLECALCIFEROL 1000 INTER.UNIT TAB PO SCH (09:35)
[2017-10-09] MEDS: ASPIRIN 81 MG ECTAB PO SCH (09:35)
[2017-10-09] MEDS: CHECK FENTANYL PATCH PLACEMENT SCH ×3 (09:39→16:00)
[2017-10-09 10:52] LABS: BASO % 0.1 %; BASO ABS # 0.01 K/uL (0-0.2); EOS % 0.1 %; EOS ABS # 0.01 K/uL (0-0.5); HEMOGLOBIN 11.3 g/dL (12.0-16.0); IG# 0.02 K/uL (0.00-0.02); LYMPH % 5.5 %; LYMPH ABS # 0.55 K/uL (1.2-3.4); MEAN CELL VOLUME 96.3 fL (80-100); MEAN CORPUSCULAR HGB CONC 33.2 g/dl (32-36); MEAN PLATELET VOLUME 10.4 fL (7.4-10.4); MONO % 3.8 %; MONO ABS # 0.38 K/uL (0.11-0.59); NEUT % 90.3 %; NEUT ABS # 9.12 K/uL (1.4-6.5); PLATELET COUNT 275 K/uL (130-400); RED CELL DISTRIBUTION WIDTH CV 15.1 % (11.5-14.5); WHITE BLOOD COUNT 10.09 K/uL (4.8-10.8)
[2017-10-09 11:36] LABS: CALCIUM 8.4 mg/dl (8.5-10.1); CREATININE 1.18 mg/dl (0.60-1.20); POTASSIUM 3.6 mmol/L (3.5-5.1)
--- NOTE | 2017-10-09 13:07 | PROGRESS NOTE ---
DATE: 10/09/2017 SUBJECTIVE: Mrs. Mendoza was admitted for a possible transient ischemic attack. Coumadin optimized, aspirin added. She had a 30-second spells, very marginal dysarthria yesterday, none recurrent. She had a headache last evening, possibly because she normally takes Tylenol with codeine 4 times a day and was only receiving it on a p.r.n. basis. The patient was very hypertensive and I do not know if the headache came first or the hypertension related to the pain. Her CT of the head was repeated and was unremarkable. CTA yesterday showed no high grade stenosis in the [place] or neck. OBJECTIVE: She does not recall having a headache last evening. She is awake and alert. There is normal speech and language. Her affect is appropriate. There is no facial asymmetry. Strength is full in both the arms and legs. IMPRESSION AND PLAN: 1. Transient ischemic attack. The patient has been optimized on aspirin and Coumadin. 2. Headache last evening, possibly related to not receiving Tylenol with codeine regularly or hypertension, less likely. Will sign off. The patient does not need neurologic followup. [facility]
[2017-10-09] MEDS ORDERED: WARFARIN SOD 4 MG TAB PO SCH (16:00)
[2017-10-09] MEDS: DIGOXIN 0.125 MG TAB PO SCH (16:45)
--- NOTE | 2017-10-09 16:48 | Progress Note ---
Internal Med Progress Note Date of Service: Oct 09, 2017. Provider Documentation: SUBJECTIVE: resting comfortably last night patient had headache but resolved now denies any pain now no sob no nausea As per daughters patient was not taking meds prior to coming to hospital and also they say her BP was high last few days even after taking her pills. But they also say that her cpap machine broke and was not using for last several days Patient also takes Tylenol #4 four times daily regularly but here she was placed on prn and did not received much OBJECTIVE: Vital Signs-as noted below Exam: General alert and awake . not in distress ENT-Normal hearing Neck-no neck masses Lungs-Cta b/l no wheezing or crackles Heart-S1 and S2 heard regular No murmurs Abdomen-Soft Bowel sounds present non tender No distension Extremities-no edema no erythema Neuro-alert and awake moves extremities non focal Lab data as noted below. ASSESSMENT & PLAN: 1. Transient ischemic attack. The patient's symptoms resolved. stroke alert was called initially but her symptoms resolved Ct head unremarkable carotid us unremarkable echo shows valvular heart disease inr 1.8 on presentation and dose of Lovenox given for bridging. Coumadin 5mg given inr 2.8today lipid profile-LDL 67. HDL 31 total cholesterol 115, TG 97 added aspirin yesterday had 30 secs of slurred speech which prompted cta head and neck which are unremarkable. Currently stable. To continue Coumadin and aspirin appreciate neurology inputs 2. Atrial fibrillation on anticoagulation, her rate is controlled. s/p pacemaker. On lopressor and digoxin.. on coumadin inr 1.8 on presentation. inr 2.9 today. has appointment with Coumadin clinic. 3. Hypertension. elevated continue home meds recently patient cpap machine broke at home could be causing bP high at home In hospital patient was not getting her Tylenol#4 as much as she takes at home- could be causing her headache and elevated BP added amlodipine and increased clonidine to bid f/u with pcp and cardiology 4. Valvular heart disease f/u with cardiology has appointment 5. Esophageal reflux. On proton pump inhibitor. 6. Spinal stenosis, chronic back pain. On chronic pain medications. 7. Chronic kidney disease, stage III. Will monitor kidney function while in the hospital. No electrolyte abnormality at this time. 8. Deep venous thrombosis prophylaxis, on Coumadin. 9. Code status. full code. DISPOSITION monitor in tele possible d/c in am if stable Vital Signs: Date Time Temp Pulse Resp B/P (MAP) Pulse Ox O2 Delivery O2 Flow Rate FiO2 10/09/17 15:20 36.8 65 22 98/45 (62) 95 BiPAP 10/09/17 12:03 36.6 62 16 134/56 (82) 97 10/09/17 12:00 Room Air 10/09/17 09:42 153/83 (106) 10/09/17 08:07 36.6 80 18 196/110 (138) 98 Room Air 10/09/17 08:00 Room Air 10/09/17 07:45 186/96 (126) 10/09/17 06:45 198/93 (128) 10/09/17 05:30 70 248/148 (181) 82 10/09/17 04:53 80 14 196/89 (124) 96 Room Air 10/09/17 04:00 Room Air 10/09/17 03:50 200/100 (133) 10/09/17 03:32 36.3 70 20 210/93 (132) 93 Room Air 10/09/17 00:00 Room Air 10/08/17 23:27 36.8 64 17 142/93 (109) 91 Room Air 10/08/17 20:00 Room Air 10/08/17 19:06 37.7 100 20 173/86 (115) 96 Room Air Lab Results: Results Past 24 Hours Test 10/09/17 05:12 10/09/17 09:56 Range/Units Prothrombin Time 28.4 9.0-12.0 SECONDS Prothromb Time International Ratio 2.8 0.9-1.1 White Blood Count 10.09 4.8-10.8 K/uL Red Blood Count 3.53 4.2-5.4 M/uL Hemoglobin 11.3 12.0-16.0 g/dL Hematocrit 34.0 37-47 % Mean Corpuscular Volume 96.3 80-100 fL Mean Corpuscular Hemoglobin 32.0 25-34 pg Mean Corpuscular Hemoglobin Concent 33.2 32-36 g/dl Platelet Count 275 130-400 K/uL Mean Platelet Volume 10.4 7.4-10.4 fL Neutrophils (%) (Auto) 90.3 % Lymphocytes (%) (Auto) 5.5 % Monocytes (%) (Auto) 3.8 % Eosinophils (%) (Auto) 0.1 % Basophils (%) (Auto) 0.1 % Neutrophils # (Auto) 9.12 1.4-6.5 K/uL Lymphocytes # (Auto) 0.55 1.2-3.4 K/uL Monocytes # (Auto) 0.38 0.11-0.59 K/uL Eosinophils # (Auto) 0.01 0-0.5 K/uL Basophils # (Auto) 0.01 0-0.2 K/uL RDW Standard Deviation 53.0 36.4-46.3 fL RDW Coefficient of Variation 15.1 11.5-14.5 % Immature Granulocyte % (Auto) 0.2 % Immature Granulocyte # (Auto) 0.02 0.00-0.02 K/uL Sodium Level 132 136-145 mmol/L Potassium Level 3.6 3.5-5.1 mmol/L Chloride Level 96 98-107 mmol/L Carbon Dioxide Level 28 21-32 mmol/L Anion Gap 8.0 3-11 mmol/L Blood Urea Nitrogen 15 7-18 mg/dl Creatinine 1.18 0.60-1.20 mg/dl Est Creatinine Clear Calc Drug Dose 39.8 ml/min Estimated GFR () 48.0 Estimated GFR (Non- 41.4 BUN/Creatinine Ratio 12.8 10-20 Random Glucose 166 70-99 mg/dl Calcium Level 8.4 8.5-10.1 mg/dl Magnesium Level 1.5 1.8-2.4 mg/dl
[2017-10-09] MEDS: ROPINIROLE HCL 0.25 MG TAB PO SCH (19:49)
[2017-10-09] MEDS: FENTANYL PATCH REMOVE & WASTE SCH (19:54)
[2017-10-09] MEDS: FENTANYL 25 MCG/HR TDSY TD SCH (19:57)
[2017-10-10] VITALS: BP 108/75; PULSE 68
[2017-10-10] MEDS: AMPICILLIN/SULBACTAM SOD INJ 1,500 MG in SODIUM CHLORIDE 0.9% 100ML 100 ML IV SCH ×2 (00:20→06:31)
[2017-10-10] MEDS: CHECK FENTANYL PATCH PLACEMENT SCH ×2 (00:20→08:23)
[2017-10-10 00:50] VITALS: TEMP 36.9; O2SAT 95
[2017-10-10 03:11] VITALS: BP 128/63; PULSE 65; TEMP 36.8; O2SAT 92
[2017-10-10 06:11] LABS: INR 2.5 (0.9-1.1)
[2017-10-10] MEDS: LEVOTHYROXINE 50 MCG TAB PO SCH (06:32)
[2017-10-10] MEDS: METOPROLOL TARTRATE 100 MG TAB PO SCH (08:17)
[2017-10-10] MEDS: DOCUSATE SODIUM 100 MG CAP PO SCH (08:17)
[2017-10-10] MEDS: ASPIRIN 81 MG ECTAB PO SCH (08:17)
[2017-10-10] MEDS: AMLODIPINE BESYLATE 5 MG TAB PO SCH (08:17)
[2017-10-10] MEDS: MAGNESIUM OXIDE 400 MG TAB PO SCH (08:17)
[2017-10-10] MEDS: LOSARTAN/HCTZ 50-12.5 EA TAB PO SCH (08:18)
[2017-10-10] MEDS: DULOXETINE (CYMBALTA) 30 MG CAP PO SCH (08:18)
[2017-10-10] MEDS: CHOLECALCIFEROL 1000 INTER.UNIT TAB PO SCH (08:18)
[2017-10-10] MEDS: CODEINE PO SCH (08:19)
[2017-10-10] MEDS: ACETAMINOPHEN PO SCH (08:19)
[2017-10-10 08:30] VITALS: BP 117/63
[2017-10-10] MEDS: PSYLLIUM 58.6% PWD PACK S\\F PO SCH (08:32)
[2017-10-10] MEDS: NYSTATIN/TRIAMCINOLONE CR 15 GM TUBE EXT SCH (08:32)
[2017-10-10] MEDS: CLONIDINE HCL 0.1 MG TAB PO SCH (08:32)
[2017-10-10 08:42] VITALS: BP 149/63; PULSE 66; TEMP 36.9; O2SAT 96
[2017-10-10] MEDS ORDERED: MAGNESIUM SULFATE 1GM / D5W 1 GM in PREMIXED IN D5W 100 ML IV ONE (11:00)
--- NOTE | 2017-10-10 11:01 | Clinical Documentation Query ---
OBEY Valencia : CLINICAL DOCUMENTATION QUERY Patient is an 87 year old female admitted for evaluation and treatment of stroke like symptoms. Diagnoses include "TIA". History of atrial fibrillation and subtherapeutic INR on arrival. Bridged with Lovenox to resumption of Coumadin. Embolic. ASA added. Neurology consulted. In your clinical opinion is this patient being managed for: ( ) Embolic TIA d/t cerebral embolism in the setting of Afib and valvular disease ( ) Not Agree ( ) Other explanation of clinical findings (Please Explain) ( ) Unable to determine (Please Define) ( ) Need to Discuss The medical record reflects the following clinical findings, treatment, and risk factors. Clinical Indicators: As above Treatment: Coumadin, Lovenox, serial coagulation studies. Risk Factors: Age, atrial fibrillation, severe MR, TR, moderate Please clarify and document your clinical opinion in the progress notes and discharge summary. Terms such as "probable", "suspected", "likely", "questionable", "possible", or "still to be ruled out" are acceptable. IF IN AGREEMENT, YOU MUST DOCUMENT ABOVE DIAGNOSTIC STATEMENT IN DAILY PROGRESS NOTES AND DISCHARGE SUMMARY. This document is not part of the patient's record. Thank You, Kaz Pickering, RN [phone]
[2017-10-10] MEDS ORDERED: CTP1 PO (11:10)
[2017-10-10] MEDS ORDERED: NRV5 PO (11:10)
[2017-10-10] MEDS ORDERED: LCTX PO (11:10)
[2017-10-10] MEDS ORDERED: AMOX875T PO (11:10)
[2017-10-10] MEDS ORDERED: ASPI81TA28 PO (11:10)
[2017-10-10 12:09] VITALS: BP 153/85; PULSE 61; TEMP 36.7; O2SAT 97
--- NOTE | 2017-10-10 13:51 | Progress Note ---
Internal Med Progress Note Date of Service: Oct 10, 2017. Provider Documentation: SUBJECTIVE: resting comfortably denies any headache no chest pain or sob afebrile' ok to go home OBJECTIVE: Vital Signs-as noted below Exam: General alert and awake . not in distress ENT-Normal hearing Neck-no neck masses Lungs-Cta b/l no wheezing or crackles Heart-S1 and S2 heard regular No murmurs Abdomen-Soft Bowel sounds present non tender No distension Extremities-no edema no erythema Neuro-alert and awake moves extremities non focal Lab data as noted below. ASSESSMENT & PLAN: 1. Transient ischemic attack. The patient's symptoms resolved. stroke alert was called initially but her symptoms resolved Ct head unremarkable carotid us unremarkable echo shows valvular heart disease inr 1.8 on presentation and dose of Lovenox given for bridging. Coumadin 5mg given inr 2.8today lipid profile-LDL 67. HDL 31 total cholesterol 115, TG 97 added aspirin 09/28/17 had 30 secs of slurred speech which prompted cta head and neck which are unremarkable. Currently stable. To continue Coumadin and aspirin appreciate neurology inputs f/u with pcp 2. Atrial fibrillation on anticoagulation, her rate is controlled. s/p pacemaker. On lopressor and digoxin.. on coumadin inr 1.8 on presentation. inr 2.5 today. has appointment with Coumadin clinic. 3. Hypertension. elevated continue home meds recently patient cpap machine broke at home could be causing bP high at home In hospital patient was not getting her Tylenol#4 as much as she takes at home- could be causing her headache and elevated BP added amlodipine and increased clonidine to bid stable now f/u with pcp and cardiology 4. Valvular heart disease f/u with cardiology has appointment 5. Esophageal reflux. On proton pump inhibitor. 6. Spinal stenosis, chronic back pain. On chronic pain medications. 7. Chronic kidney disease, stage III. Will monitor kidney function while in the hospital. No electrolyte abnormality at this time. discharged home Vital Signs: Date Time Temp Pulse Resp B/P (MAP) Pulse Ox O2 Delivery O2 Flow Rate FiO2 10/10/17 12:09 36.7 61 20 153/85 (107) 97 10/10/17 12:00 Room Air 10/10/17 08:42 36.9 66 18 149/63 (91) 96 10/10/17 08:30 117/63 (81) 10/10/17 08:00 Room Air 10/10/17 04:00 Room Air 10/10/17 03:11 36.8 65 15 128/63 (84) 92 CPAP 10/10/17 00:50 36.9 20 95 CPAP 10/10/17 00:00 Room Air 10/10/17 00:00 68 108/75 (86) 10/09/17 20:00 Room Air 10/09/17 19:32 36.9 65 18 115/61 (79) 94 Room Air 10/09/17 16:45 68 10/09/17 16:00 Room Air 10/09/17 15:20 36.8 65 22 98/45 (62) 95 BiPAP Lab Results: Results Past 24 Hours Test 10/10/17 05:17 Range/Units Prothrombin Time 26.1 9.0-12.0 SECONDS Prothromb Time International Ratio 2.5 0.9-1.1
--- NOTE | 2017-10-10 13:59 | Discharge Summary ---
Discharge Summary Date of Service Oct 10, 2017. 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 No acute intracranial abnormality. CXR: Cardiomegaly with resolving pulmonary vascular congestion. No evidence of focal pulmonary consolidation CAROTID US: IMPRESSION: No evidence of hemodynamically significant carotid stenosis. LEFT KNEE/TIBIA/FIBULA XRAY: No fracture or dislocation within the left knee or left lower leg CTA NECK: No evidence of hemodynamically significant carotid or vertebral artery stenosis. No evidence of dissection. CTA HEAD:Hypoplastic right A1 segment. Otherwise unremarkable CT angiography of the brain. REPEAT CT HEAD 10/09/17: 1. Chronic small vessel ischemic change. No acute intracranial abnormality. 2. Aerated secretions in the left maxillary sinus concerning for acute sinusitis. Furthermore, sclerosis of the left maxillary sinus wall suggest a history of chronic sinusitis. ECHO: The right ventricular systolic function is normal. * The left atrium is severely dilated. * The right atrium is severely dilated. * Aortic valve sclerosis moderate, without significant aortic valvular stenosis. * Moderate aortic regurgitation. * There is severe mitral regurgitation. * There is severe tricuspid regurgitation. Consultations: NEUROLOGY Medication Reconciliation New Medications: Amlodipine Besylate (Amlodipine Besylate) 5 Mg Tab 5 MG PO DAILY, #30 TAB 1 Refill Amoxicillin & Pot Clavulanate (Augmentin 875-125 mg) 1 Tab Tab 875 MG PO BID, #14 TAB Aspirin (Aspirin Ec) 81 Mg Tab 81 MG PO DAILY, #30 1 Refill Lactobacillus Acidophilus (Lactinex) Tab 2 TAB PO BID for 10 Days, TAB Clonidine HCl (Clonidine HCl) 0.1 Mg Tab 0.1 MG PO BID, #60 TAB 1 Refill Continued Medications: Acetaminophen W/ Codeine (Tylenol/Codeine #4) 1 Tab Tab 1 TAB PO Q6H PRN for Pain for 30 Days, #120 TAB Albuterol Sulfate (Proair Respiclick) 108 Mcg/Act Aer 2 PUFFS INH QID PRN for SOB/Wheezing Artificial Tear Solution (Tears Naturale) 1 Vernell Vernell Unknown Dose OPB DIRECTED PRN for DRYNESS Cholecalciferol (Vitamin D) 1,000 Unit Tab 1000 UNITS PO DAILY Digoxin (Digoxin) 0.125 Mg Tab 0.125 MG PO Q2D Docusate Sodium (Docusate Sodium) 100 Mg Cap 100 MG PO BID for 7 Days, #14 CAP Duloxetine Hcl (Cymbalta) 30 Mg Cap 30 MG PO DAILY, CAP Fentanyl (Fentanyl) 25 Mcg Tdsy 25 MCG TD Q72H Hctz/Losartan (Hyzaar 25MG/100MG) Tab 1 TAB PO DAILY, 0 Refills Levothyroxine Sodium (Synthroid) 50 Mcg Tab 50 MCG PO DAILY, TAB Lorazepam (Ativan) 0.5 Mg Tab 0.5 MG PO TID PRN for Anxiety/Agitation, TAB Magnesium Oxide (Mag-Ox) 400 Mg Tab 400 MG PO DAILY, 0 Refills Metoprolol Tartrate (Metoprolol Tartrate) 100 Mg Tab 100 MG PO BID Naloxone HCl (Narcan) 4 Mg/0.1 Ml Spr 1 SPRAY NA DIRECTED PRN for SUSPECTED OPOID OVERDOSE Nystatin/Triamcinolone (Mycolog ||) Cr 1 APPLN TD BID Ondansetron Hcl (Zofran) 8 Mg Tab 8 MG PO TID PRN for Nausea, TAB Polyethylene Glycol 3350 (Miralax) 1 Pow Pow 17 GM PO DAILY PRN for Constipation, #527 GM Psyllium (Metamucil Original Textur) 48.57 % Pow 1.5 TBS PO QAM MIX WITH 8 OZ. FLUID. Ropinirole (Requip) 0.5 Mg Tab 0.5 MG PO HS, TAB Warfarin Sodium (Warfarin Sodium) 2 Mg Tab 4 MG PO 2XWK for 90 Days, TAB 3 Refills TAKES MONDAYS & FRIDAYS. Warfarin Sodium (Coumadin) 2 Mg Tab 3 MG PO 5XWK, TAB TAKES EVERYDAY EXCEPT MON & FRI. Admission Information HPI (per Admitting provider): : She is an 87-year-old female with significant past medical history of atrial fibrillation on long-term anticoagulation, chronic kidney disease, status post cardiac pacemaker, hypertension, esophageal reflux, history of tachybrady syndrome, hyperlipidemia, hypothyroidism and also spinal stenosis, apparently has been complaining of slurred speech with dizziness and numbness involving the right little finger and right sided extremities after breakfast this morning. The condition lasted for about half an hour when she was brought into the Emergency Room and the symptoms resolved. With the symptoms, she was trying to get up and get into the car and she was almost passed out, but she did not pass out as such. She feels very weak and lethargic, but in the ER, all of her symptoms resolved. Apparently, she was in the ER yesterday, not feeling well and she was noted to have high blood pressure. A CAT scan of the head and chest x-ray unremarkable. She was sent home yesterday. She was feeling good throughout the whole day yesterday and also she had a good sleep last night. She woke up this morning and after breakfast, she has had all those symptoms of TIA, which is resolved right now, and she does not have any symptoms at this moment. Physical Exam (per Admitting): GENERAL: On examination in the Emergency Room, she was not having any acute distress. VITAL SIGNS: Temperature afebrile; pulse is 81, irregularly irregular; blood pressure 162/139, saturation was 98% on room air. HEENT: Unremarkable. NECK: Supple. No JVD, no bruit. CHEST: Decreased breath sounds at bases but no wheezing and/or crackles. HEART: S1, S2 irregular. No definite murmur. ABDOMEN: Soft, benign, nontender, no organomegaly. Bowel sounds present. EXTREMITIES: 1+ edema bilaterally. She does have bruising with status post recent fall. MUSCULOSKELETAL SYSTEM: No acute arthritis involving any joint. CENTRAL NERVOUS SYSTEM: She was alert, awake, oriented x3 and no focal sensory and/or motor deficit appreciated. There is no abnormality in the face as well. Hospital Course 1. Transient ischemic attack. The patient's symptoms resolved. stroke alert was called initially but her symptoms resolved Ct head unremarkable carotid us unremarkable echo shows valvular heart disease inr 1.8 on presentation and dose of Lovenox given for bridging. Coumadin 5mg given inr 2.8today lipid profile-LDL 67. HDL 31 total cholesterol 115, TG 97 added aspirin 09/28/17 had 30 secs of slurred speech which prompted cta head and neck which are unremarkable. Currently stable. To continue Coumadin and aspirin appreciate neurology inputs f/u with pcp 2. Atrial fibrillation on anticoagulation, her rate is controlled. s/p pacemaker. On lopressor and digoxin.. on coumadin inr 1.8 on presentation. inr 2.5 today. has appointment with Coumadin clinic. 3. Hypertension. elevated continue home meds recently patient cpap machine broke at home could be causing bP high at home In hospital patient was not getting her Tylenol#4 as much as she takes at home- could be causing her headache and elevated BP added amlodipine and increased clonidine to bid stable now f/u with pcp and cardiology 4. Valvular heart disease f/u with cardiology has appointment 5. Esophageal reflux. On proton pump inhibitor. 6. Spinal stenosis, chronic back pain. On chronic pain medications. 7. Chronic kidney disease, stage III. Will monitor kidney function while in the hospital. No electrolyte abnormality at this time. 8. ACUTE MAXILLARY SINUSITIS. WAS PLACED ON IV UNASYN D/C ON AUGMENTIN discharged home Total time spent on discharge = 35MINUTES This includes examination of the patient, discharge planning, medication reconciliation, and communication with other providers. Discharge Instructions Please take this sheet to every appointment for the next month Discharge Instructions Date of Service Oct 10, 2017. Admission Reason for Admission: Htn (Hypertension), Tia(Transient Ischemic Attach) Discharge Discharge Diagnosis / Problem: TIA, uncontrolled htn Discharge Goals Goal(s): Decrease discomfort, Improve function Activity Recommendations Activity Limitations: resume your previous activity . Instructions / Follow-Up Instructions / Follow-Up FOLLOWUP WITH FAMILY DOCTOR ON Oct AT 2:45PM FOLLOWUP WITH CARDIOLOGY SCHEDULED FOLLOWUP WITH COUMADIN CLINIC SCHEDULED. BLOOD PRESSURE FOLLOWUP WITH FAMILY DOCTOR. CHOLESTEROL LDL 67. HDL 31. ANY TREATMENT PER FAMILY DOCTOR. PLEASE GO THROUGH MEDICATION LIST CAREFULLY. Risk Factors for Stroke: You can reduce your chances of stroke by working with your medical provider to adopt a healthy lifestyle. Some specific ways to lower your chance of stroke are: * If you are a smoker, now is the time to stop smoking cigarettes * If you are diabetic, improve the control of your blood sugars * Avoid excessive amounts of alcohol * Control high blood pressure * Lose weight if you are overweight * Be sure to lead an active lifestyle * Eat a healthy diet low in salt, cholesterol and fat You should know about other risk factors for stroke that you are unable to control. These include: * Age 55 years or older * Male gender * Certain racial groups: , or / * Family History of Stroke, Mini stroke or Heart Attack * Sickle Cell Disease Follow Up: It is important for you to keep your follow up appointments with your medical provider. Current Hospital Diet Patient's current hospital diet: AHA Diet (Heart Healthy) Discharge Diet Recommended Diet: AHA Diet (Heart Healthy) Pending Studies Studies pending at discharge: no Laboratory Results Lipid Panel Test 10/08/17 05:13 Range/Units Triglycerides Level 97 0-150 mg/dl Cholesterol Level 115 0-200 mg/dl HDL Cholesterol 31 mg/dl Cholesterol/HDL Ratio 3.7 LDL Cholesterol, Calculated 65 mg/dl Medical Emergencies . Who to Call and When: Medical Emergencies: Call 911 immediately if you experience any of the following warning signs and symptoms of Stroke: * Sudden numbness or weakness of the face, arm or leg, especially on one side of the body * Sudden confusion, trouble speaking or understanding * Sudden trouble seeing in one or both eyes * Sudden trouble walking, dizziness, loss of balance or coordination * Sudden severe headache with no cause Do not delay calling 911 if you experience any warning signs or symptoms of a stroke. Delay in seeking medical attention may affect what treatments can be given to you. . Non-Emergent Contact Non-Emergency issues call your: Primary Care Provider . . "Provider Documentation" section prepared by Josep Ramirez. . Stroke Core Measures Reason no t-PA for Stroke: Treatment not indicated Reason no antithrom by day 2: Treatment provided - N/A Reason no antithrom at D/C: Treatment provided - N/A Reason no statin at D/C: Drug Allergy (ALSO LDL<70) Reason no anticoag w/a fib: Treatment provided - N/A VTE Core Measure Inpt VTE Proph given/why not?: Warfarin (Coumadin)
== END 2017-10-10 16:07 | disposition home or self-care (01) | DRG 69 ==
LOC: C.EDA 15:27 → C.2E 17:38 → ENRESERV 18:13 → OBSVTOIN 10-09 17:28
PROVIDERS: ADMIT Internal Medicine; ATTEND Internal Medicine
DX: G45.9 Transient cerebral ischemic attack, unspecified (principal); R53.1 Weakness; R47.81 Slurred speech; I48.91 Unspecified atrial fibrillation; J01.00 Acute maxillary sinusitis, unspecified; Z79.01 Long term (current) use of anticoagulants; I10 Essential (primary) hypertension; N18.3 Chronic kidney disease, stage 3 (moderate); M48.00 Spinal stenosis, site unspecified; E83.42 Hypomagnesemia; Z95.0 Presence of cardiac pacemaker; K21.9 Gastro-esophageal reflux disease without esophagitis; E78.5 Hyperlipidemia, unspecified; E03.9 Hypothyroidism, unspecified; Z86.73 Personal history of transient ischemic attack (TIA), and cerebral infarction without residual deficits; Z87.891 Personal history of nicotine dependence; Z96.652 Presence of left artificial knee joint

== ENCOUNTER 2018-05-17 19:12 | Observation (INO) | payer OTHER ==
[~2018-05-17] VITALS: Ht 165.1 cm; Wt 100.0 kg
[~2018-05-17 19:12] MED LIST changes: +ASPI81TA28 PO; -CTP/1 PO; +CTP1 PO; +NRV5 PO; +ONDA-170 PO; -ONDA8TAB6 PO
--- NOTE | 2018-05-17 19:48 | EMERGENCY ROOM VISIT NOTE ---
History Report prepared by Harinder: Sherry Gaston Under the Supervision of: Dr. José Antonio Amezcua M.D. 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 She reports she has not been able to urinate since this morning (this is not new) although she has been drinking fluids. She states she feels like she needs to urinate, but she cannot. The patient reports she has no numbness as she can feel the paper when she wipes after using the bathroom. She notes she has weakness in her legs when she sits too long (this is not new). The patient is accompanied by her daughter who states her mother has a history of diminished kidney function. 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 The patient states she has been constipated in the past but denies any fevers, chills, nausea, vomiting, or dysuria. She currently takes Coumadin for Afib. 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 A total of ten systems were reviewed and were otherwise negative. Past Medical & Surgical Medical Problems: (1) ARF (acute renal failure) (2) Atrial fibrillation (3) HTN (hypertension) (4) Hypertension (5) Hypertensive urgency (6) Kidney disease (7) Spinal stenosis (8) TIA (transient ischemic attack) (9) TIA (transient ischemic attack) Family History Diabetes mellitus Heart disease High blood pressure Social History Smoking Status: Never Smoker Smokeless Tobacco Use: No Alcohol Use: none Marital Status: Housing Status: lives with family Occupation Status: retired Current/Historical Medications Scheduled Aspirin (Aspirin Ec), 81 MG PO DAILY Cholecalciferol (Vitamin D), 1,000 UNITS PO DAILY Clonazepam (Klonopin), 0.5 MG PO DAILY Digoxin (Digox), 125 MCG PO MWF Duloxetine HCl (Duloxetine HCl), 30 MG PO DAILY Fentanyl (Duragesic), 50 MCG TOP [id number] Furosemide (Furosemide), 20 MG PO 2XWK Hctz/Losartan (Hyzaar 25MG/100MG), 1 TAB PO DAILY Levothyroxine Sodium (Levothyroxine Sodium), 50 MCG PO DAILY Magnesium Oxide (Mag-Ox), 400 MG PO DAILY Metoprolol Tartrate (Metoprolol Tartrate), 100 MG PO BID Nystatin/Triamcinolone (Mycolog ||), 1 APPLN TD BID Potassium Chloride (Potassium Chloride Sr), 10 MEQ PO 2XWK Psyllium (Metamucil Original Textur), 1.5 TBS PO QAM Ropinirole Hydrochloride (Requip), 0.5 MG PO HS Warfarin Sodium (Coumadin), 2 MG PO DAILY Scheduled PRN Acetaminophen W/ Codeine (Tylenol/Codeine #4), 1 TAB PO Q6H PRN for Pain Albuterol Sulfate (Proair Respiclick), 2 PUFFS INH QID PRN for SOB/Wheezing Artificial Tear Solution (Tears Naturale), Unknown Dose OPB DIRECTED PRN for DRYNESS Docusate Sodium (Docusate Sodium), 100 MG PO BID PRN for Constipation Lorazepam (Ativan), 0.5 MG PO TID PRN for Anxiety/Agitation Naloxone HCl (Narcan), 1 SPRAY NA DIRECTED PRN for SUSPECTED OPOID OVERDOSE Ondansetron (Ondansetron HCl), 1 TAB PO TID PRN for Nausea or Vomiting Polyethylene Glycol 3350 (Miralax), 17 GM PO DAILY PRN for Constipation Allergies Coded Allergies: Clonidine (Verified Allergy, Mild, TOPICAL RASH TO PATCH ONLY, 10/06/17) PT REPORTS A REACTION TO THE PATCH ONLY. PT TAKES THE PILL WITHOUT DIFFICULTY Pravastatin (Verified Adverse Reaction, Intermediate, "MUSCLE PAIN", 10/06) Physical Exam Vital Signs Date Time Temp Pulse Resp B/P (MAP) Pulse Ox O2 Delivery O2 Flow Rate FiO2 05/18/18 01:09 88 18 118/70 96 Room Air 05/17/18 22:40 80 18 105/72 96 Room Air 05/17/18 21:04 93 18 107/83 95 Room Air 05/17/18 19:14 36.4 103 18 141/89 94 Room Air Physical Exam GENERAL: Awake, alert, well-appearing, in no distress HENT: Normocephalic, atraumatic. Oropharynx unremarkable. Mucous membranes are dry. EYES: Normal conjunctiva. Sclera non-icteric. NECK: Supple. No nuchal rigidity. FROM. No JVD. RESPIRATORY: Clear to auscultation. CARDIAC: Regular rate, normal rhythm. Extremities warm and well perfused. Pulses equal. ABDOMEN: Soft, non-distended. Suprapubic fullness and tenderness. No rebound or guarding. No masses. RECTAL: Deferred. MUSCULOSKELETAL: Chest examination reveals no tenderness. The back is symmetrical on inspection without obvious abnormality. There is no CVA tenderness to palpation. No joint edema. LOWER EXTREMITIES: Calves are equal size bilaterally and non-tender. No edema. No discoloration. NEURO: Normal sensorium. No sensory or motor deficits noted. SKIN: No rash or jaundice noted. Medical Decision & Procedures ER Provider Diagnostic Interpretation: Radiology results as stated below per my review and radiologist interpretation: SINGLE VIEW CHEST CLINICAL HISTORY: Generalized abdominal pain. Constipation. FINDINGS: An AP, portable, upright chest radiograph is compared to study dated 10/06/2017. The examination is degraded by portable technique and patient rotation. A 2-lead cardiac pacemaker is unchanged in position and partially obscures the left mid chest. The heart is enlarged and there is atherosclerotic calcification of the thoracic aorta. The pulmonary vasculature is noncongested. Chronic residual thickening similar to previous. The lungs and pleural spaces are clear. No pneumothorax is seen. The skeletal structures are osteopenic. The bony thorax is grossly intact. Degenerative change is seen in the shoulders. IMPRESSION: 1. Cardiomegaly and cardiac pacemaker. There is no radiographic evidence of congestive failure. 2. No airspace consolidation or pleural effusion is identified. Electronically signed by: William Dos Santos M.D. 05/17/2018 7:47 PM KUB CLINICAL HISTORY: Constipation. FINDINGS: 2 AP supine abdominal radiographs are correlated with abdominal CT dated 03/21/2006. Cholecystectomy clips are identified. There is a nonobstructed abdominal bowel gas pattern noting severe constipation. No evidence of intraperitoneal free air is seen on these supine images. There is advanced atherosclerotic calcification of the abdominal aorta. Calcified phleboliths are seen in the pelvis. The skeletal structures are osteopenic. There is moderate lumbosacral spondylosis. Cardiomegaly and pacemaker leads are identified at the lung bases. IMPRESSION: Severe constipation. Electronically signed by: William Dos Santos M.D. 05/17/2018 9:[address] SCAN OF THE ABDOMEN AND PELVIS WITHOUT IV CONTRAST CLINICAL HISTORY: Generalized abdominal pain. Constipation. COMPARISON STUDY: Abdominal CT dated 03/21/2006. Abdominal radiograph dated 05/17/2018. TECHNIQUE: CT scan of the abdomen and pelvis is performed from the lung bases to the proximal femora. Images are reviewed in the axial, sagittal, and coronal planes. IV contrast was not administered for this examination as per the referring clinician. Note that the examination was performed in significantly suboptimal fashion without oral and IV contrast. A dose lowering technique was utilized adhering to the principles of ALARA. CT DOSE: 813.38 mGy.cm FINDINGS: Lung bases: The heart is enlarged and without pericardial effusion. Pacemaker leads are noted. The lung bases are clear. Liver: The unenhanced liver is normal in size, contour, and attenuation. There is minimal central intrahepatic biliary ductal dilatation. There is a 3 cm hepatic cyst. Gallbladder: Surgically absent noting clips in the gallbladder fossa. Spleen: Normal in size and attenuation. Pancreas: The unenhanced pancreas is atrophic and grossly unremarkable. Adrenal glands: Unremarkable. Kidneys: The unenhanced kidneys are atrophic and without hydronephrosis. There are no renal calculi identified. A 2.3 cm exophytic cyst arises from the left upper pole. A 3.0 cm cyst is noted in the interpolar right kidney. Abdominal vasculature: The abdominal aorta is normal in course and caliber noting advanced atherosclerotic calcification. Bowel: There is rectosigmoid fecal impaction and moderate to severe constipation. No bowel obstruction is seen. There is mild colonic diverticulosis without CT evidence of acute diverticulitis. There is mild perirectal stranding. The appendix is not discretely visualized. Peritoneum: There is no intraperitoneal free air or abdominal ascites. There is a fat-containing umbilical hernia. Lymphadenopathy: None. Pelvic viscera: The bladder, uterus, and adnexa are normal as visualized. Skeletal structures: The skeletal structures are osteopenic. There is a mild to moderate compression deformity of L4. Moderate lumbosacral spondylosis is observed. Hemangiomas are noted at several vertebral levels. No lytic or blastic lesions are seen. IMPRESSION: 1. Suboptimal examination without oral and IV contrast. 2. There is rectosigmoid fecal impaction and moderate to severe constipation. No bowel obstruction is seen. 3. There is mild perirectal stranding. Correlate clinically for evidence of stercoral proctitis. 4. Cardiomegaly. 5. Additional findings as above. Electronically signed by: William Dos Santos M.D. 05/17/2018 10:13 PM Laboratory Results 05/18/18 02:35 Red Blood Count 3.37, Mean Corpuscular Volume 95.3, Mean Corpuscular Hemoglobin 31.5, Mean Corpuscular Hemoglobin Concent 33.0, Mean Platelet Volume 9.9, Neutrophils (%) (Auto) 81.5, Lymphocytes (%) (Auto) 8.4, Monocytes (%) (Auto) 8.0, Eosinophils (%) (Auto) 1.8, Basophils (%) (Auto) 0.2, Neutrophils # (Auto) 8.32, Lymphocytes # (Auto) 0.86, Monocytes # (Auto) 0.82, Eosinophils # (Auto) 0.18, Basophils # (Auto) 0.02 05/18/18 02:35 Test 05/17/18 20:03 05/17/18 20:20 05/18/18 02:35 Magnesium Level 2.2 mg/dl (1.8-2.4) Total Bilirubin 0.6 mg/dl (0.2-1) Direct Bilirubin 0.2 mg/dl (0-0.2) Aspartate Amino Transf (AST/SGOT) 100 U/L (15-37) Alanine Aminotransferase (ALT/SGPT) 48 U/L (12-78) Alkaline Phosphatase 92 U/L (45-117) Total Protein 7.1 gm/dl (6.4-8.2) Albumin 3.4 gm/dl (3.4-5.0) Lipase 52 U/L (73-393) Digoxin Level 0.5 ng/ml (0.8-2.0) Urine Color YELLOW Urine Appearance CLEAR (CLEAR) Urine pH 7.5 (4.5-7.5) Urine Specific [place] 1.022 (1.000-1.030) Urine Protein NEG (NEG) Urine Glucose (UA) NEG (NEG) Urine Ketones NEG (NEG) Urine Occult Blood NEG (NEG) Urine Nitrite NEG (NEG) Urine Bilirubin NEG (NEG) Urine Urobilinogen NEG (NEG) Urine Leukocyte Esterase NEG (NEG) White Blood Count 10.21 K/uL (4.8-10.8) Red Blood Count 3.37 M/uL (4.2-5.4) Hemoglobin 10.6 g/dL (12.0-16.0) Hematocrit 32.1 % (37-47) Mean Corpuscular Volume 95.3 fL (80-100) Mean Corpuscular Hemoglobin 31.5 pg (25-34) Mean Corpuscular Hemoglobin Concent 33.0 g/dl (32-36) Platelet Count 238 K/uL (130-400) Mean Platelet Volume 9.9 fL (7.4-10.4) Neutrophils (%) (Auto) 81.5 % Lymphocytes (%) (Auto) 8.4 % Monocytes (%) (Auto) 8.0 % Eosinophils (%) (Auto) 1.8 % Basophils (%) (Auto) 0.2 % Neutrophils # (Auto) 8.32 K/uL (1.4-6.5) Lymphocytes # (Auto) 0.86 K/uL (1.2-3.4) Monocytes # (Auto) 0.82 K/uL (0.11-0.59) Eosinophils # (Auto) 0.18 K/uL (0-0.5) Basophils # (Auto) 0.02 K/uL (0-0.2) RDW Standard Deviation 48.4 fL (36.4-46.3) RDW Coefficient of Variation 13.8 % (11.5-14.5) Immature Granulocyte % (Auto) 0.1 % Immature Granulocyte # (Auto) 0.01 K/uL (0.00-0.02) Prothrombin Time 23.7 SECONDS (9.0-12.0) Prothromb Time International Ratio 2.3 (0.9-1.1) Anion Gap 7.0 mmol/L (3-11) Est Creatinine Clear Calc Drug Dose 30.5 ml/min Estimated GFR () 35.4 Estimated GFR (Non- 30.5 BUN/Creatinine Ratio 18.1 (10-20) Estimated Average Glucose 143 mg/dl Hemoglobin A1c 6.6 % (4.5-5.6) Lactic Acid Level 2.0 mmol/L (0.4-2.0) Calcium Level 7.6 mg/dl (8.5-10.1) Procalcitonin 0.14 ng/ml (0-0.5) Laboratory results reviewed by me Medications Administered Medications (Trade) Dose Ordered Sig/Lindsey Route Start Time Stop Time Status Last Admin Dose Admin Sodium Chloride 500 ml @ 999 mls/hr Q31M STAT IV 05/17/18 20:43 05/17/18 21:13 DC 05/17/18 21:03 999 MLS/HR Sodium Chloride 500 ml @ 999 mls/hr Q31M STAT IV 05/17/18 23:14 05/17/18 23:44 DC 05/17/18 23:25 999 MLS/HR Sodium Biphosphate/ Sodium Phosphate (Fleet Enema) 132 ml NOW STAT [place] 05/17/18 23:28 05/17/18 23:29 DC 05/17/18 23:44 132 ML Metoclopramide HCl (Reglan Inj) 10 mg NOW STAT IV 05/17/18 23:28 05/17/18 23:29 DC 05/17/18 23:44 10 MG Sodium Chloride 500 ml @ 100 mls/hr Q5H STAT IV 05/18/18 01:46 05/18/18 03:47 DC 05/18/18 02:13 100 MLS/HR ED Course 1936: The patient was evaluated in room B10. A complete history and physical exam was performed. Medical Decision I reviewed the patient's past medical history, medications, and the nursing notes as described above. Differential diagnosis: Etiologies such as appendicitis, diverticulitis, PUD, biliary pathology, UTI, pancreatitis, obstruction, mesenteric ischemia, aortic pathology, infections, inflammatory bowel disease, renal colic, as well as others were entertained. The patient is an 87-year-old woman with a past medical history of spinal stenosis, A. fib on Coumadin, status post pacemaker for tachybradycardia syndrome, hypertension, hyperlipidemia, CKD presents emergency department with abdominal pain, constipation, urinary retention over the past couple of days per hpi. Patient reports she believes that her constipation is due to her narcotics which she takes for her spinal stenosis. She was recently switched from [place] to Tylenol with Codeine. On arrival the patient is no acute distress , afebrile stable vital signs. On exam the patient appears clinically dry. She has mild suprapubic fullness with mild tenderness. Patient bladder scanned by RN demonstrating greater than 600 cc. Despite this unable to urinate and straight cath was performed. Otherwise, the patient's exam has 5/5 strength in bilateral lower extremities. She denies any saddle anesthesia. UA negative for infection. WBC 12, nonspecific. Lactate however 3.0. Creatinine 1.6 slightly increased from recent. BUN/Cr ~20 suggesting likely prerenal component. Chest x-ray unremarkable. KUB demonstrating severe constipation. CT abdomen pelvis further demonstrates severe fecal impaction. Repeat lactate after IV fluid hydrations unchanged. Patient was given Fleet enema and Reglan with no significant bowel movement. Disimpaction performed while has significant impacted stool in the rectum, unable to completely disimpact due to patient discomfort. Given the patient's multiple issues at this time including obstipation with urinary retention as well as elevated lactate that did not clear with IV fluids it is reasonable to admit the patient for further IV fluid hydration and trending of her lactate as well as further treatment for her constipation and monitoring of her urinary retention. Case was discussed with Dr. Mosley, [facility] hospitalist, who will evaluate the patient for admission. Medication Reconcilliation Current Medication List: was personally reviewed by me Blood Pressure Screening Patient's blood pressure: Elevated blood pressure Blood pressure disposition: Elevated BP felt to be situational Consults Time Called: 01:58 Consulting Physician: Dr. Mosley, [facility] hospitalist. Returned Call: 2:00 Will evaluate the patient for admission. Impression Primary Impression: Elevated lactic acid level Additional Impressions: Constipation Urinary retention Scribe Attestation The scribe's documentation has been prepared under my direction and personally reviewed by me in its entirety. I confirm that the note above accurately reflects all work, treatment, procedures, and medical decision making performed by me. Departure Information Referrals Willi Mccoy D.O. (PCP) Patient Instructions [facility] Problem Qualifiers
[2018-05-17 20:27] LABS: BASO % 0.1 %; BASO ABS # 0.01 K/uL (0-0.2); EOS % 1.3 %; EOS ABS # 0.17 K/uL (0-0.5); HEMATOCRIT 35.6 % (37-47); HEMOGLOBIN 11.5 g/dL (12.0-16.0); IG# 0.03 K/uL (0.00-0.02); LYMPH % 7.9 %; LYMPH ABS # 1.01 K/uL (1.2-3.4); MEAN CELL VOLUME 96.2 fL (80-100); MEAN CORPUSCULAR HEMOGLOBIN 31.1 pg (25-34); MEAN CORPUSCULAR HGB CONC 32.3 g/dl (32-36); MEAN PLATELET VOLUME 10.4 fL (7.4-10.4); MONO % 6.1 %; MONO ABS # 0.78 K/uL (0.11-0.59); NEUT % 84.4 %; NEUT ABS # 10.77 K/uL (1.4-6.5); PLATELET COUNT 280 K/uL (130-400); RED CELL DISTRIBUTION WIDTH CV 13.8 % (11.5-14.5); WHITE BLOOD COUNT 12.77 K/uL (4.8-10.8)
[2018-05-17] MEDS ORDERED: SODIUM CHLORIDE 0.9% 500ML 500 ML IV STA ×2 (20:43→23:14)
[2018-05-17] MEDS ORDERED: OPTIRAY 320 IV PRN (20:45)
[2018-05-17] MEDS ORDERED: ROPI0.5T PO (21:15)
[2018-05-17] MEDS ORDERED: ONDA-63 PO (21:15)
[2018-05-17] MEDS ORDERED: FNTTP50 TOP (21:15)
[2018-05-17] MEDS ORDERED: POTA10TA33 PO (21:15)
[2018-05-17] MEDS ORDERED: WARF2TAB PO (21:15)
[2018-05-17] MEDS ORDERED: LSX20 PO (21:15)
[2018-05-17] MEDS ORDERED: DIGO0.1219 PO (21:15)
[2018-05-17] MEDS ORDERED: CYM30 PO (21:15)
[2018-05-17] MEDS ORDERED: KLN/5 PO (21:15)
[2018-05-17 21:17] LABS: ALBUMIN 3.4 gm/dl (3.4-5.0); CALCIUM 8.4 mg/dl (8.5-10.1); CREATININE 1.66 mg/dl (0.60-1.20); POTASSIUM 4.5 mmol/L (3.5-5.1); TOTAL PROTEIN 7.1 gm/dl (6.4-8.2)
[2018-05-17] MEDS ORDERED: ASPI81TA28 PO (21:26)
[2018-05-17] MEDS ORDERED: ATV5X PO (21:26)
[2018-05-17] MEDS ORDERED: LEVO50TA6 PO (21:26)
[2018-05-17] MEDS ORDERED: MAGN400T6 PO (21:26)
--- NOTE | 2018-05-17 21:38 | DIAGNOSTIC IMAGING REPORT ---
KUB CLINICAL HISTORY: Constipation. FINDINGS: 2 AP supine abdominal radiographs are correlated with abdominal CT dated 03/21/2006. Cholecystectomy clips are identified. There is a nonobstructed abdominal bowel gas pattern noting severe constipation. No evidence of intraperitoneal free air is seen on these supine images. There is advanced atherosclerotic calcification of the abdominal aorta. Calcified phleboliths are seen in the pelvis. The skeletal structures are osteopenic. There is moderate lumbosacral spondylosis. Cardiomegaly and pacemaker leads are identified at the lung bases. IMPRESSION: Severe constipation. Electronically signed by: William Dos Santos M.D. 05/17/2018 9:37 PM Dictated Date/Time: 05/17/2018 9:36 PM
--- NOTE | 2018-05-17 22:15 | DIAGNOSTIC IMAGING REPORT ---
CT SCAN OF THE ABDOMEN AND PELVIS WITHOUT IV CONTRAST CLINICAL HISTORY: Generalized abdominal pain. Constipation. COMPARISON STUDY: Abdominal CT dated 03/21/2006. Abdominal radiograph dated 05/17/2018. TECHNIQUE: CT scan of the abdomen and pelvis is performed from the lung bases to the proximal femora. Images are reviewed in the axial, sagittal, and coronal planes. IV contrast was not administered for this examination as per the referring clinician. Note that the examination was performed in significantly suboptimal fashion without oral and IV contrast. A dose lowering technique was utilized adhering to the principles of ALARA. CT DOSE: 813.38 mGy.cm FINDINGS: Lung bases: The heart is enlarged and without pericardial effusion. Pacemaker leads are noted. The lung bases are clear. Liver: The unenhanced liver is normal in size, contour, and attenuation. There is minimal central intrahepatic biliary ductal dilatation. There is a 3 cm hepatic cyst. Gallbladder: Surgically absent noting clips in the gallbladder fossa. Spleen: Normal in size and attenuation. Pancreas: The unenhanced pancreas is atrophic and grossly unremarkable. Adrenal glands: Unremarkable. Kidneys: The unenhanced kidneys are atrophic and without hydronephrosis. There are no renal calculi identified. A 2.3 cm exophytic cyst arises from the left upper pole. A 3.0 cm cyst is noted in the interpolar right kidney. Abdominal vasculature: The abdominal aorta is normal in course and caliber noting advanced atherosclerotic calcification. Bowel: There is rectosigmoid fecal impaction and moderate to severe constipation. No bowel obstruction is seen. There is mild colonic diverticulosis without CT evidence of acute diverticulitis. There is mild perirectal stranding. The appendix is not discretely visualized. Peritoneum: There is no intraperitoneal free air or abdominal ascites. There is a fat-containing umbilical hernia. Lymphadenopathy: None. Pelvic viscera: The bladder, uterus, and adnexa are normal as visualized. Skeletal structures: The skeletal structures are osteopenic. There is a mild to moderate compression deformity of L4. Moderate lumbosacral spondylosis is observed. Hemangiomas are noted at several vertebral levels. No lytic or blastic lesions are seen. IMPRESSION: 1. Suboptimal examination without oral and IV contrast. 2. There is rectosigmoid fecal impaction and moderate to severe constipation. No bowel obstruction is seen. 3. There is mild perirectal stranding. Correlate clinically for evidence of stercoral proctitis. 4. Cardiomegaly. 5. Additional findings as above. Electronically signed by: William Dos Santos M.D. 05/17/2018 10:13 PM Dictated Date/Time: 05/17/2018 10:07 PM
[2018-05-17 22:35] LABS: INR 2.3 (0.9-1.1)
[2018-05-17] MEDS ORDERED: SOD PHOSPHATE/SOD BIPHOSPHATE ENEMA 132 ML BTL PR STA (23:28)
[2018-05-17] MEDS ORDERED: METOCLOPRAMIDE HCL INJ 5 MG/ML 2 ML VIAL IV STA (23:28)
[2018-05-18] MEDS ORDERED: SODIUM CHLORIDE 0.9% 500ML 500 ML IV STA (01:46)
[2018-05-18 02:43] LABS: BASO % 0.2 %; BASO ABS # 0.02 K/uL (0-0.2); EOS % 1.8 %; EOS ABS # 0.18 K/uL (0-0.5); HEMATOCRIT 32.1 % (37-47); HEMOGLOBIN 10.6 g/dL (12.0-16.0); IG# 0.01 K/uL (0.00-0.02); LYMPH % 8.4 %; LYMPH ABS # 0.86 K/uL (1.2-3.4); MEAN CELL VOLUME 95.3 fL (80-100); MEAN CORPUSCULAR HEMOGLOBIN 31.5 pg (25-34); MEAN PLATELET VOLUME 9.9 fL (7.4-10.4); MONO ABS # 0.82 K/uL (0.11-0.59); NEUT % 81.5 %; NEUT ABS # 8.32 K/uL (1.4-6.5); PLATELET COUNT 238 K/uL (130-400); RED CELL DISTRIBUTION WIDTH CV 13.8 % (11.5-14.5); RED CELL DISTRIBUTION WIDTH SD 48.4 fL (36.4-46.3); WHITE BLOOD COUNT 10.21 K/uL (4.8-10.8)
[2018-05-18 02:58] LABS: INR 2.3 (0.9-1.1)
[2018-05-18 03:00] LABS: CALCIUM 7.6 mg/dl (8.5-10.1); CREATININE 1.52 mg/dl (0.60-1.20)
[2018-05-18 03:13] VITALS: O2SAT 95
[2018-05-18] MEDS ORDERED: HYDROmorphone INJ 0.5 MG/0.5 ML SYR IV PRN (03:15)
[2018-05-18] MEDS ORDERED: ACETAMINOPHEN PO PRN (03:15)
[2018-05-18] MEDS ORDERED: PROCHLORPERAZINE INJ 5 MG in SYRINGE 4 ML IV PRN (03:15)
[2018-05-18] MEDS ORDERED: ACETAMINOPHEN 325 MG TAB PO PRN (03:15)
[2018-05-18] MEDS ORDERED: CODEINE PO PRN (03:15)
[2018-05-18] MEDS ORDERED: LORAZEPAM 0.5 MG TAB PO PRN (03:15)
[2018-05-18] MEDS ORDERED: METOPROLOL TARTRATE 50 MG TAB PO STA (03:26)
[2018-05-18] MEDS ORDERED: WARFARIN SOD 2 MG TAB PO STA (03:29)
[2018-05-18 03:41] VITALS: BP 151/75; PULSE 77; TEMP 36.6; Ht 165.1 cm; Wt 100.0 kg
[2018-05-18] MEDS ORDERED: IV FLUIDS COMPLETED PRN (03:45)
[2018-05-18] MEDS ORDERED: POLYETHYLENE (MIRALAX) 17 GM PACK PO PRN (03:45)
[2018-05-18] MEDS ORDERED: SODIUM CHLORIDE 0.9% 1000ML 1,000 ML IV ONE (04:15)
[2018-05-18] MEDS ORDERED: METOPROLOL TARTRATE 100 MG TAB PO SCH (04:30)
[2018-05-18] MEDS: CHECK FENTANYL PATCH PLACEMENT SCH ×3 (04:35→16:19)
[2018-05-18] MEDS ORDERED: LEVOTHYROXINE 50 MCG TAB PO SCH (06:30)
[2018-05-18 08:12] LABS: HEMOGLOBIN A1C 6.6 % (4.5-5.6)
[2018-05-18 08:30] VITALS: BP 125/75; PULSE 73; TEMP 36.8; O2SAT 95
[2018-05-18] MEDS ORDERED: FENTANYL PATCH REMOVE & WASTE SCH (08:59)
[2018-05-18] MEDS ORDERED: ASPIRIN 81 MG ECTAB PO SCH (09:00)
[2018-05-18] MEDS ORDERED: PSYLLIUM 58.6% PWD PACK S\\F PO SCH (09:00)
[2018-05-18] MEDS ORDERED: CLONAZEPAM 0.5 MG TAB PO SCH (09:00)
[2018-05-18] MEDS ORDERED: DOCUSATE SODIUM 100 MG CAP PO SCH (09:00)
[2018-05-18] MEDS ORDERED: FENTANYL 50 MCG/HR TDSY TD SCH (09:00)
[2018-05-18] MEDS ORDERED: DULOXETINE (CYMBALTA) 30 MG CAP PO SCH (09:00)
--- NOTE | 2018-05-18 09:49 | HISTORY & PHYSICAL EXAMINATION ---
DATE OF ADMISSION: 05/18/2018 PATIENT'S PRIMARY CARE DOCTOR: Dr. Mccoy. CHIEF COMPLAINT: Constipation. HISTORY OF PRESENT ILLNESS: History obtained from patient, daughters, and records. Medical history significant for sick sinus syndrome sp PPM on Coumadin, hypertension, hyperlipidemia, chronic pain on narcotics, IBS (alternating constipation diarrhea) as per records, history of TIA as per records. CRI (baseline creatinine 1.3.) Recent confinement 2017 for TIA symptoms. Patient had a change in her pain regimen last week. Changed from usual Vicodin to Tylenol w/ codeine. Chronic back pain symptoms better controlled. Patient noted to be constipated the last 3 days, unusual for her. Patient is compliant with bowel regimen. No chest pain, no shortness of breath. Rectal pain on straining, poor appetite, some nausea, no vomiting. Generalized weakness. No fever, no chills. No bladder discomfort. Urinary retention noted. Straight cath done at the ER for urinary retention. Patient received enema and laxatives at the ER with resulting bowel movement. The patient is feeling better. MEDICAL HISTORY: As above. 2D echo from 2017, severe MR, severe TR, biatrial dilatation, moderate AR. SURGERIES: She has had knee surgery, cataract, pacemaker, gallbladder, shoulder surgery. HOME MEDICATIONS: Include levothyroxine, Ativan, mag oxide, metoprolol, Mycolog, psyllium, Requip, MiraLax, Zofran, Coumadin, docusate sodium digoxin, duloxetine, Duragesic patch, furosemide, losartan. ALLERGIES: CLONIDINE, PRAVASTATIN. FAMILY HISTORY: Heart disease, diabetes. PERSONAL AND SOCIAL HISTORY: Nonsmoker, no chronic intake of alcoholic beverages. REVIEW OF SYSTEMS: As per HPI, all 10 systems reviewed, all other ROS negative. PHYSICAL EXAMINATION: VITAL SIGNS: Blood pressure was noted to be 141/89, later 118/70, pulse rate 103, later 80, RR 18, temperature 36.6, sats 98 on room air. GENERAL: Noted to be obese, no respiratory distress, slightly hard of hearing. SKIN: Pallor, warm. HEENT: Bespectacled. Pale palpebral conjunctivae. No ptosis. Dry mucosa. NECK: Short, supple. CHEST: Decreased effort. No tenderness. HEART: Irregular, systolic murmur. ABDOMEN: Some distention, non-tender. EXTREMITIES: bilateral LE edema, no tenderness. No other gross deformity. NEUROLOGIC: Coherent. No gross focality except for mild hearing impairment. LABORATORY DATA: Hemoglobin noted to be 11.5, white cell 12, platelets noted to be 280. Sodium noted to be 137, potassium 4.5, creatinine 1.66, glucose 163. Lipase normal, AST 100. UA yellow, clear. CT abdomen and pelvis initial read showed mild constipation, possible stercoral proctitis. ASSESSMENT: 1. Acute renal failure, proctitis secondary to narcotic-induced constipation. chronic pain on narcotics 2. Hypertension, elevated 3. SSS sp PPM on Coumadin, INR therapeutic. 4. Hyperglycemia, rule out DM. 5. hx TIA as per records PLAN: OBS GMF Bowel regimen Monitor creatinine response to IV fluids Hold home ARB/diuretics until creatinine at baseline. Check hemoglobin A1c. PT, OT eval. DVT prophylaxis, Coumadin INR 2-3. Full code. Patient's daughters requesting updates from providers : Ms. Karmen Lagos thru [phone] MsSteven Hill thru [phone]. AICHAD
--- NOTE | 2018-05-18 11:43 | Progress Note ---
Medicine Progress Note Date & Time of Visit: May 18, 2018 at 11:04. Subjective Pt was seen and examined Lying in bed sleeping comfortable with no distress Pt said that she was up all night She said that she is trying to get some sleep She said that she feels fine She 2 BM in the middle of the night and 1 BM this morning She denies any chest pain, palpitation, dizziness and SOB Objective Last 8 Hrs Date Time Temp Pulse Resp B/P (MAP) Pulse Ox O2 Delivery O2 Flow Rate FiO2 05/18/18 08:30 36.8 73 18 125/75 (92) 95 05/18/18 03:41 36.6 77 16 151/75 Room Air 05/18/18 03:13 87 18 157/87 95 05/18/18 03:11 87 18 157/87 95 Room Air Physical Exam: General- No acute distress Head- atraumatic Eyes- PERRL, EOMI ENT- oropharynx clear Neck- supple, no JVD Lungs- clear to auscultation Heart- regular rhythm Abdomen- normal bowel sounds, soft Extremities- no calf tenderness Neuro- alert, oriented x 3; PERRL, EOMI Skin- warm & dry Laboratory Results: Last 24 Hours Test 05/17/18 20:03 05/17/18 20:20 05/17/18 21:45 05/18/18 00:33 White Blood Count 12.77 K/uL Red Blood Count 3.70 M/uL Hemoglobin 11.5 g/dL Hematocrit 35.6 % Mean Corpuscular Volume 96.2 fL Mean Corpuscular Hemoglobin 31.1 pg Mean Corpuscular Hemoglobin Concent 32.3 g/dl Platelet Count 280 K/uL Mean Platelet Volume 10.4 fL Neutrophils (%) (Auto) 84.4 % Lymphocytes (%) (Auto) 7.9 % Monocytes (%) (Auto) 6.1 % Eosinophils (%) (Auto) 1.3 % Basophils (%) (Auto) 0.1 % Neutrophils # (Auto) 10.77 K/uL Lymphocytes # (Auto) 1.01 K/uL Monocytes # (Auto) 0.78 K/uL Eosinophils # (Auto) 0.17 K/uL Basophils # (Auto) 0.01 K/uL RDW Standard Deviation 48.0 fL RDW Coefficient of Variation 13.8 % Immature Granulocyte % (Auto) 0.2 % Immature Granulocyte # (Auto) 0.03 K/uL Sodium Level 137 mmol/L Potassium Level 4.5 mmol/L Chloride Level 100 mmol/L Carbon Dioxide Level 30 mmol/L Anion Gap 7.0 mmol/L Blood Urea Nitrogen 31 mg/dl Creatinine 1.66 mg/dl Est Creatinine Clear Calc Drug Dose 28.0 ml/min Estimated GFR () 31.8 Estimated GFR (Non- 27.4 BUN/Creatinine Ratio 18.8 Random Glucose 163 mg/dl Lactic Acid Level 3.0 mmol/L 3.0 mmol/L Calcium Level 8.4 mg/dl Magnesium Level 2.2 mg/dl Total Bilirubin 0.6 mg/dl Direct Bilirubin 0.2 mg/dl Aspartate Amino Transf (AST/SGOT) 100 U/L Alanine Aminotransferase (ALT/SGPT) 48 U/L Alkaline Phosphatase 92 U/L Total Protein 7.1 gm/dl Albumin 3.4 gm/dl Lipase 52 U/L Digoxin Level 0.5 ng/ml Urine Color YELLOW Urine Appearance CLEAR Urine pH 7.5 Urine Specific Galt 1.022 Urine Protein NEG Urine Glucose (UA) NEG Urine Ketones NEG Urine Occult Blood NEG Urine Nitrite NEG Urine Bilirubin NEG Urine Urobilinogen NEG Urine Leukocyte Esterase NEG Prothrombin Time 24.1 SECONDS Prothromb Time International Ratio 2.3 Test 05/18/18 02:35 White Blood Count 10.21 K/uL Red Blood Count 3.37 M/uL Hemoglobin 10.6 g/dL Hematocrit 32.1 % Mean Corpuscular Volume 95.3 fL Mean Corpuscular Hemoglobin 31.5 pg Mean Corpuscular Hemoglobin Concent 33.0 g/dl Platelet Count 238 K/uL Mean Platelet Volume 9.9 fL Neutrophils (%) (Auto) 81.5 % Lymphocytes (%) (Auto) 8.4 % Monocytes (%) (Auto) 8.0 % Eosinophils (%) (Auto) 1.8 % Basophils (%) (Auto) 0.2 % Neutrophils # (Auto) 8.32 K/uL Lymphocytes # (Auto) 0.86 K/uL Monocytes # (Auto) 0.82 K/uL Eosinophils # (Auto) 0.18 K/uL Basophils # (Auto) 0.02 K/uL RDW Standard Deviation 48.4 fL RDW Coefficient of Variation 13.8 % Immature Granulocyte % (Auto) 0.1 % Immature Granulocyte # (Auto) 0.01 K/uL Prothrombin Time 23.7 SECONDS Prothromb Time International Ratio 2.3 Sodium Level 135 mmol/L Potassium Level 4.0 mmol/L Chloride Level 101 mmol/L Carbon Dioxide Level 27 mmol/L Anion Gap 7.0 mmol/L Blood Urea Nitrogen 28 mg/dl Creatinine 1.52 mg/dl Est Creatinine Clear Calc Drug Dose 30.5 ml/min Estimated GFR () 35.4 Estimated GFR (Non- 30.5 BUN/Creatinine Ratio 18.1 Random Glucose 147 mg/dl Estimated Average Glucose 143 mg/dl Hemoglobin A1c 6.6 % Lactic Acid Level 2.0 mmol/L Calcium Level 7.6 mg/dl Procalcitonin 0.14 ng/ml Date/Time Source Procedure Growth Status 05/18/18 02:35 Blood Blood Culture Pending Received 05/18/18 02:30 Blood Blood Culture Pending Received Assessment & Plan Opioid induced Constipation CT abd/pelvis on admission showed rectosigmoid fecal impaction and moderate to severe constipation. KUB showed severe constipation Received Colace and Metamucil Bowel has been moving well Continue IVF Acute renal failure creatine on admission 1.6 Creatine baseline btw 1.3 to 1.5 Creatine today 1.5 Diuretic on hold Continue IVF for now Urinary retention Possible related to constipation Good output from the ring Will remove Ring to do voiding trial Continue monitor Elevated Lactic acid Mostly due to dehydration Procalcitonin praneeth CXR negative Afebrile WBC trending wnl Lactic acid back to normal No Abx given Continue IVF Hypertension BP stable Continue metoprolol Hold Lasix DM type Hba1c 6.6 Discuss lifestyle modification Follow a healthy diabetic diet and limited concentrated sweet intake Repeat Hba1c in 3-6 months Sick Sinus Syndrome S/P pacemaker on Coumadin INR therapeutic Continue Coumadin monitor INR Chronic Pain Syndrome Continue Narcotic Stable DVT px On coumadin INR 2.3 CODE STATUS FULL CODE Current Inpatient Medications: Current Inpatient Medications Medications (Trade) Dose Ordered Sig/Lindsey Route Start Time Stop Time Status Last Admin Dose Admin Ioversol (Optiray 320) 111 ml UD PRN IV 05/17/18 20:45 05/21/18 20:44 Sodium Chloride 1,000 ml @ 60 mls/hr [id number] ONCE IV 05/18/18 04:15 05/18/18 20:54 05/18/18 04:35 60 MLS/HR Acetaminophen (Tylenol Tab) 650 mg Q4H PRN PO 05/18/18 03:15 06/17/18 03:14 Hydromorphone HCl (Dilaudid Inj) 0.5 mg Q6H PRN IV 05/18/18 03:15 06/01/18 03:14 Prochlorperazine Edisylate 5 mg/ Syringe 5 ml @ 5 mls/min Q6H PRN IV 05/18/18 03:15 06/17/18 03:14 Acetaminophen/ Codeine Phosphate (Tylenol w/ Codeine #4 Tab) 1 tab Q6H PRN PO 05/18/18 03:15 06/17/18 03:14 Aspirin (Ecotrin Tab) 81 mg DAILY PO 05/18/18 09:00 06/17/18 08:59 05/18/18 09:16 81 MG Clonazepam (Klonopin Tab) 0.5 mg DAILY PO 05/18/18 09:00 06/17/18 08:59 05/18/18 09:22 0.5 MG Digoxin (Lanoxin Tab) 0.125 mg MoWeFr@1600 PO 05/18/18 16:00 06/17/18 15:59 Duloxetine HCl (Cymbalta Cap) 30 mg DAILY PO 05/18/18 09:00 06/17/18 08:59 05/18/18 09:16 30 MG Fentanyl (Duragesic Patch) 50 mcg Q3D TD 05/18/18 09:00 06/01/18 08:59 05/18/18 09:23 50 MCG Levothyroxine Sodium (Synthroid Tab) 50 mcg DAILYBB PO 05/18/18 06:30 06/17/18 06:59 05/18/18 04:58 50 MCG Lorazepam (Ativan Tab) 0.5 mg TID PRN PO 05/18/18 03:15 06/17/18 03:14 Metoprolol Tartrate (Lopressor Tab) 100 mg BID PO 05/18/18 04:30 06/17/18 04:29 05/18/18 04:37 100 MG Ropinirole HCl (Requip Tab) 0.5 mg HS PO 05/18/18 21:00 06/17/18 20:59 Polyethylene (Miralax Powder Packet) 17 gm DAILY PRN PO 05/18/18 03:45 06/17/18 03:44 05/18/18 09:22 17 GM Psyllium Hydrophilic Mucilloid (Metamucil Powder) 1 pkt DAILY PO 05/18/18 09:00 06/17/18 08:59 Docusate Sodium (coLACE CAP) 100 mg DAILY PO 05/18/18 09:00 06/17/18 08:59 05/18/18 09:35 100 MG Miscellaneous (Iv Fluids Completed) 1 ea PRN PRN N/A 05/18/18 03:45 05/18/19 03:44 Miscellaneous (Fentanyl Patch Remove & Waste) 1 ea Q3D@0859 N/A 05/18/18 08:59 06/17/18 08:58 05/18/18 09:25 1 EA Miscellaneous Information (Check Fentanyl Patch Placement) 1 ea QS N/A 05/18/18 04:15 06/17/18 04:14 05/18/18 09:16 1 EA
[2018-05-18] MEDS ORDERED: DIGOXIN 0.125 MG TAB PO SCH (16:00)
[2018-05-18] MEDS ORDERED: WARFARIN SOD 2 MG TAB PO ONE (16:08)
[2018-05-18 16:18] VITALS: PULSE 90; O2SAT 95
--- NOTE | 2018-05-18 16:29 | Discharge Instructions ---
Discharge Instructions Date of Service May 18, 2018. Admission Reason for Admission: Arf (Acute Renal Failure) Discharge Discharge Diagnosis / Problem: Constipation, Urinary retention, Elevated Lactic acid Discharge Goals Goal(s): Decrease discomfort, Improve function, Improve disease control Activity Recommendations Activity Limitations: resume your previous activity (as tolerated) . Instructions / Follow-Up Instructions / Follow-Up Follow up with your primary care provider Dr. Lang (Dr. Mccoy colleague) on 05/23 @ 10:45 AM Follow up with the Coumadin clinic (INR today 2.3) Follow up a healthy diabetes diet and limited concentrated sweet Fall precaution Do not drive or operate any machine while you are on narcotic Avoid medications that can damage your kidney Check BMP in 1 week to monitor your creatine level Current Hospital Diet Patient's current hospital diet: Clear Liquid Diet Discharge Diet Recommended Diet: Diabetes Type 2 Diet Pending Studies Studies pending at discharge: no Laboratory Results Hemoglobin A1c Test 05/18/18 02:35 Range/Units Estimated Average Glucose 143 mg/dl Hemoglobin A1c 6.6 H 4.5-5.6 % Medical Emergencies . Who to Call and When: Medical Emergencies: If at any time you feel your situation is an emergency, please call 911 immediately. . Non-Emergent Contact Non-Emergency issues call your: Primary Care Provider Call Non-Emergent contact if: you have any medication questions . . "Provider Documentation" section prepared by Jermaine Churchill. .
[2018-05-18 16:49] VITALS: BP 125/75; PULSE 90; TEMP 36.8; O2SAT 95
[2018-05-18] MEDS ORDERED: ROPINIROLE HCL 0.25 MG TAB PO SCH (21:00)
[2018-05-19] MEDS ORDERED: WARFARIN SOD 2 MG TAB PO SCH (16:00)
--- NOTE | 2018-05-21 08:28 | Discharge Summary ---
Discharge Summary Date of Service May 21, 2018. Discharge Summary Admission Date: May 18, 2018 at 02:49 Discharge Date: May 18, 2018 Discharge Disposition: Home Principal Diagnosis: Opioid induced Constipation Secondary Diagnoses/Problems: Acute renal failure Urinary retention Elevated Lactic acid HTN DM type 2 Sick Sinus Syndrome Chronic pain Syndrome Procedures: CT SCAN OF THE ABDOMEN AND PELVIS WITHOUT IV CONTRAST CLINICAL HISTORY: Generalized abdominal pain. Constipation. COMPARISON STUDY: Abdominal CT dated 03/21/2006. Abdominal radiograph dated 05/17/2018. TECHNIQUE: CT scan of the abdomen and pelvis is performed from the lung bases to the proximal femora. Images are reviewed in the axial, sagittal, and coronal planes. IV contrast was not administered for this examination as per the referring clinician. Note that the examination was performed in significantly suboptimal fashion without oral and IV contrast. A dose lowering technique was utilized adhering to the principles of ALARA. CT DOSE: 813.38 mGy.cm FINDINGS: Lung bases: The heart is enlarged and without pericardial effusion. Pacemaker leads are noted. The lung bases are clear. Liver: The unenhanced liver is normal in size, contour, and attenuation. There is minimal central intrahepatic biliary ductal dilatation. There is a 3 cm hepatic cyst. Gallbladder: Surgically absent noting clips in the gallbladder fossa. Spleen: Normal in size and attenuation. Pancreas: The unenhanced pancreas is atrophic and grossly unremarkable. Adrenal glands: Unremarkable. Kidneys: The unenhanced kidneys are atrophic and without hydronephrosis. There are no renal calculi identified. A 2.3 cm exophytic cyst arises from the left upper pole. A 3.0 cm cyst is noted in the interpolar right kidney. Abdominal vasculature: The abdominal aorta is normal in course and caliber noting advanced atherosclerotic calcification. Bowel: There is rectosigmoid fecal impaction and moderate to severe constipation. No bowel obstruction is seen. There is mild colonic diverticulosis without CT evidence of acute diverticulitis. There is mild perirectal stranding. The appendix is not discretely visualized. Peritoneum: There is no intraperitoneal free air or abdominal ascites. There is a fat-containing umbilical hernia. Lymphadenopathy: None. Pelvic viscera: The bladder, uterus, and adnexa are normal as visualized. Skeletal structures: The skeletal structures are osteopenic. There is a mild to moderate compression deformity of L4. Moderate lumbosacral spondylosis is observed. Hemangiomas are noted at several vertebral levels. No lytic or blastic lesions are seen. IMPRESSION: 1. Suboptimal examination without oral and IV contrast. 2. There is rectosigmoid fecal impaction and moderate to severe constipation. No bowel obstruction is seen. 3. There is mild perirectal stranding. Correlate clinically for evidence of stercoral proctitis. 4. Cardiomegaly. 5. Additional findings as above. Electronically signed by: William Dos Santos M.D. 05/17/2018 10:13 PM Medication Reconciliation Continued Medications: Acetaminophen W/ Codeine (Tylenol/Codeine #4) 1 Tab Tab 1 TAB PO Q6H PRN for Pain for 30 Days, #120 TAB Albuterol Sulfate (Proair Respiclick) 108 Mcg/Act Aer 2 PUFFS INH QID PRN for SOB/Wheezing Artificial Tear Solution (Tears Naturale) 1 Vernell Vernell Unknown Dose OPB DIRECTED PRN for DRYNESS Aspirin (Aspirin Ec) 81 Mg Tab 81 MG PO DAILY Cholecalciferol (Vitamin D) 1,000 Unit Tab 1000 UNITS PO DAILY Clonazepam (Klonopin) 0.5 Mg Tab 0.5 MG PO DAILY, TAB Digoxin (Digox) 125 Mcg Tab 125 MCG PO MWF Docusate Sodium (Docusate Sodium) 100 Mg Cap 100 MG PO BID PRN for Constipation for 7 Days, #14 CAP Duloxetine HCl (Duloxetine HCl) 30 Mg Cap 30 MG PO DAILY Fentanyl (Duragesic) 50 Mcg Tdsy 50 MCG TOP [id number] Furosemide (Furosemide) 20 Mg Tab 20 MG PO 2XWK TAKES ON MONDAY & THURSDAYS Hctz/Losartan (Hyzaar 25MG/100MG) Tab 1 TAB PO DAILY, 0 Refills Levothyroxine Sodium (Levothyroxine Sodium) 50 Mcg Tab 50 MCG PO DAILY Lorazepam (Ativan) 0.5 Mg Tab 0.5 MG PO TID PRN for Anxiety/Agitation, TAB Magnesium Oxide (Mag-Ox) 400 Mg Tab 400 MG PO DAILY, TAB Metoprolol Tartrate (Metoprolol Tartrate) 100 Mg Tab 100 MG PO BID Naloxone HCl (Narcan) 4 Mg/0.1 Ml Spr 1 SPRAY NA DIRECTED PRN for SUSPECTED OPOID OVERDOSE Nystatin/Triamcinolone (Mycolog ||) Cr 1 APPLN TD BID Ondansetron (Ondansetron HCl) 8 Mg Tab 1 TAB PO TID PRN for Nausea or Vomiting Polyethylene Glycol 3350 (Miralax) 1 Pow Pow 17 GM PO DAILY PRN for Constipation, #527 GM Potassium Chloride (Potassium Chloride Sr) 10 Meq Tab 10 MEQ PO 2XWK TAKE MONDAY & MONDAY Psyllium (Metamucil Original Textur) 48.57 % Pow 1.5 TBS PO QAM MIX WITH 8 OZ. FLUID. Ropinirole Hydrochloride (Requip) 0.5 Mg Tab 0.5 MG PO HS Warfarin Sodium (Coumadin) 2 Mg Tab 2 MG PO DAILY, TAB Admission Information HPI (per Admitting provider): CHIEF COMPLAINT: Constipation. HISTORY OF PRESENT ILLNESS: History obtained from patient, daughters, and records. Medical history significant for sick sinus syndrome sp PPM on Coumadin, hypertension, hyperlipidemia, chronic pain on narcotics, IBS (alternating constipation diarrhea) as per records, history of TIA as per records. CRI (baseline creatinine 1.3.) Recent confinement 2016 for TIA symptoms. Patient had a change in her pain regimen last week. Changed from usual Vicodin to Tylenol w/ codeine. Chronic back pain symptoms better controlled. Patient noted to be constipated the last 3 days, unusual for her. Patient is compliant with bowel regimen. No chest pain, no shortness of breath. Rectal pain on straining, poor appetite, some nausea, no vomiting. Generalized weakness. No fever, no chills. No bladder discomfort. Urinary retention noted. Straight cath done at the ER for urinary retention. Patient received enema and laxatives at the ER with resulting bowel movement. The patient is feeling better. Physical Exam (per Admitting): VITAL SIGNS: BP 141/89, later 118/70, pulse rate 103, later 80, RR 18, temperature 36.6, sats 98 on room air. GENERAL: Noted to be obese, no respiratory distress, slightly hard of hearing. SKIN: Pallor, warm. HEENT: Bespectacled. Pale palpebral conjunctivae. No ptosis. Dry mucosa. NECK: Short, supple. CHEST: Decreased effort. No tenderness. HEART: Irregular, systolic murmur. ABDOMEN: Some distention, non-tender. EXTREMITIES: bilateral LE edema, no tenderness. No other gross deformity. NEUROLOGIC: Coherent. No gross focality except for mild hearing impairment. Hospital Course Opioid induced Constipation CT abd/pelvis on admission showed rectosigmoid fecal impaction and moderate to severe constipation. KUB showed severe constipation Received Colace and Metamucil Bowel has been moving well Continue IVF Acute renal failure creatine on admission 1.6 Creatine baseline btw 1.3 to 1.5 Creatine today 1.5 Diuretic on hold Continue IVF for now Urinary retention Possible related to constipation Good output from the ring Will remove Ring to do voiding trial Continue monitor Elevated Lactic acid Mostly due to dehydration Procalcitonin praneeth CXR negative Afebrile WBC trending wnl Lactic acid back to normal No Abx given Continue IVF Hypertension BP stable Continue metoprolol Hold Lasix DM type Hba1c 6.6 Discuss lifestyle modification Follow a healthy diabetic diet and limited concentrated sweet intake Repeat Hba1c in 3-6 months Sick Sinus Syndrome S/P pacemaker on Coumadin INR therapeutic Continue Coumadin monitor INR Chronic Pain Syndrome Continue Narcotic Stable DVT px On coumadin INR 2.3 CODE STATUS FULL CODE Total time spent on discharge = 35 minutes This includes examination of the patient, discharge planning, medication reconciliation, and communication with other providers. Discharge Instructions Discharge Instructions Date of Service May 18, 2018. Admission Reason for Admission: Arf (Acute Renal Failure) Discharge Discharge Diagnosis / Problem: Constipation, Urinary retention, Elevated Lactic acid Discharge Goals Goal(s): Decrease discomfort, Improve function, Improve disease control Activity Recommendations Activity Limitations: resume your previous activity (as tolerated) . Instructions / Follow-Up Instructions / Follow-Up Follow up with your primary care provider Dr. Lang (Dr. Mccoy colleague) on 05/23 @ 10:45 AM Follow up with the Coumadin clinic (INR today 2.3) Follow up a healthy diabetes diet and limited concentrated sweet Fall precaution Do not drive or operate any machine while you are on narcotic Avoid medications that can damage your kidney Check BMP in 1 week to monitor your creatine level Current Hospital Diet Patient's current hospital diet: Clear Liquid Diet Discharge Diet Recommended Diet: Diabetes Type 2 Diet Pending Studies Studies pending at discharge: no Laboratory Results Hemoglobin A1c Test 05/18/18 02:35 Range/Units Estimated Average Glucose 143 mg/dl Hemoglobin A1c 6.6 H 4.5-5.6 % Medical Emergencies . Who to Call and When: Medical Emergencies: If at any time you feel your situation is an emergency, please call 911 immediately. . Non-Emergent Contact Non-Emergency issues call your: Primary Care Provider Call Non-Emergent contact if: you have any medication questions . . "Provider Documentation" section prepared by Jermaine Churchill. . Additional Copies To Willi Mccoy D.O.
== END 2018-05-18 17:58 | disposition home or self-care (01) ==
LOC: C.EDB 19:14 → C.MS2W 05-18 02:49 → ENRESERV 05-18 02:55
PROVIDERS: ADMIT Internal Medicine; ATTEND Internal Medicine
DX: N17.9 Acute kidney failure, unspecified (principal); K59.03 Drug induced constipation; R33.9 Retention of urine, unspecified; I10 Essential (primary) hypertension; E11.9 Type 2 diabetes mellitus without complications; G89.4 Chronic pain syndrome; I49.5 Sick sinus syndrome; K58.2 Mixed irritable bowel syndrome; M48.00 Spinal stenosis, site unspecified; M47.817 Spondylosis without myelopathy or radiculopathy, lumbosacral region; E78.5 Hyperlipidemia, unspecified; Z86.73 Personal history of transient ischemic attack (TIA), and cerebral infarction without residual deficits; Z79.82 Long term (current) use of aspirin